=== PATIENT | female | born 1995 | race Caucasian/White ===

== ENCOUNTER 2017-03-28 15:16 | Emergency (ER) | payer MEDICAID ==
[~2017-03-28] VITALS: Ht 175.3 cm; Wt 131.5 kg
[~2017-03-28 15:16] MED LIST: AUGMENTIN1 TA2 PO; IBUPROFEN 600M600 MG PO; LORTAB 5/3251 TAB PO; NAPROSYN 500MG500 MG PO; PERCOCET 5/3251 EACH PO; [UNRECOGNIZED DRUG - OTHER] PO; [UNRECOGNIZED DRUG - OTHER] XX
--- OUTSIDE RECORDS SUMMARY | 2017-03-28 15:26 | External Medical Summary Rpt | CCD ---
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 PLASTIC FOR FOR OPERATION CHILD CHILD S TIBIA&FIB MENDEL ANES OPEN 94111 [facility] [place] 2 MEDICAL Y CHR OSTEOTOMY SERV /OSTEOPLA FOUNDATIO STY TIBIA&/FI BULA DCMPRN 87881 WALKER WALKER FASCT LEG 2 Jun ANT&/LAT& PST CMPRT OTHER 7737 [facility] DIVISION 2 [facility] [place] FOR FOR AND CHILD CHILD FIBULA APPLICATI 7817 [facility] 2 [facility] EXTERNAL FOR FOR FIXATOR CHILD CHILD DEVC TIBIA&FIB MENDEL COMPREHEN 07394 COMBINED COMBINED SIVE 2 PHYSICIAN PHYSICIAN METABOLIC S LA S LA PANEL BLOOD 23744 DYLLAN Lennon COUNT 2 COMPLETE AUTO&AUTO DIFRNTL WBC 25 12729 COMBINED COMBINED HYDROXY 2 PHYSICIAN PHYSICIAN INCLUDES [place] [address] COMBINED COMBINED THYROID 2 PHYSICIAN PHYSICIAN STIMULATI S LA S LA NG HORMONE TSH PHYSICAL 39037 [facility] THERAPY [address] [place] [address] EVALUATIO FOR FOR N CHILD CHILD RADIOLOGI [address] EXAMINATI FOR FOR ON KNEE CHILD CHILD 1/2 VIEWS RADIOLOGI 46445 [facility] SALES C 2 [facility] EXAMINATI INC INC ON KNEE 1/2 VIEWS ANESTHESI 27834 [facility] BENJAMIN A OPEN 2 MEDICAL Y CHR PROCEDURE SERV S UPPER FOUNDATIO 2/3 [place] [address] [facility] SOURAV INFUS/SERG 2 MEDICAL Y CHR US SERV DX/SBST FOUNDATIO EDRL/SUBA VALARIE LUM/SACRA L OSTEOTOMY 78742 WALK[facility] WALKER FEMUR 2 Jun SHAFT/SUP RACONDYLA R W/FIXATIO N INTERNAL [address] FEM FOR FOR WITHOUT CHILD CHILD FRACTURE REDUCTION WEDGE 7763 [facility] OSTEOTOMY 2 [facility] OF FEMUR FOR FOR CHILD CHILD BLOOD 61658 [facility] COUNT 2 [facility] COMPLETE FOR FOR AUTO&AUTO CHILD CHILD DIFRNTL WBC BONE 23762 [facility] LENGTH 2 [facility] STUDIES FOR FOR CHILD CHILD THROMBOPL 02101 [facility] ASTIN [address] [place] [address] TIME FOR FOR PARTIAL CHILD CHILD PLASMA/WH OLE BLOOD BASIC 12957 [facility] METABOLIC 2 [facility] PANEL FOR FOR CALCIUM CHILD CHILD TOTAL BLOOD 83744 [facility] TYPING [address] [place] [address] SEROLOGIC FOR FOR RH (D) CHILD CHILD PROTHROMB 95171 [facility] IN TIME 2 [facility] FOR FOR CHILD CHILD ANTIBODY 09925 [facility] SCREEN [address] [place] [address] HOSPITALS RBC EACH FOR FOR SERUM CHILD CHILD TECHNIQUE BLOOD [address] SEROLOGIC FOR FOR ABO CHILD CHILD THERAPEUT 98271 FAMILY DYLLAN J IC 1 CARE PROPHYLAC ASSOCIATE TIC/DX S INJECTION SUBQ/IM 4VHPV 86108 FAMILY DYLLAN J VACCINE 3 1 CARE DOSE ASSOCIATE SCHEDULE S FOR IM USE RADIOLOGI 17642 [facility] 1 [facility] EXAMINATI FOR FOR ON TIBIA CHILD CHILD & FIBULA 2 VIEWS BONE 16420 [facility] 1 [facility] STUDIES FOR FOR CHILD CHILD JOINT 84837 [place] GUERLINE SURVEY 1 MEDICAL AUGIE SINGLE SERV VIEW 2 OR FOUNDATIO MORE JOINTS RADIOLOGI 20030 [facility] SALES C 1 [facility] EXAMINATI INC INC ON KNEE 1/2 VIEWS BASIC 49854 [facility] SALES METABOLIC 1 [facility] PANEL INC INC CALCIUM TOTAL RADEX 41893 [facility] SALES SPINE 1 [facility] LUMBOSACR INC INC AL MINIMUM 4 VIEWS RADEX HIP 99771 [facility] 1 [facility] UNILATERA INC INC L COMPLETE MINIMUM 2 VIEWS SEDIMENTA 91688 [place] SALES TION RATE 1 [facility] RBC INC INC NON-AUTOM ATED BLOOD 35843 [facility] SALES COUNT 1 [facility] COMPLETE INC INC AUTO&AUTO DIFRNTL WBC URNLS DIP 78641 [facility] SALES 1 [facility] STICK/TAB INC INC LET REAGENT AUTO MICROSCOP Y URINE 90084 [facility] SALES 1 [facility] TEST INC INC VISUAL COLOR CMPRSN METHS RADIOLOGI 44294 [facility] SALES C 1 [facility] EXAMINATI INC INC ON PELVIS 1/2 VIEWS 4VHPV 82181 FAMILY DYLLAN Lennon VACCINE 3 1 CARE DOSE ASSOCIATE SCHEDULE S FOR IM USE THERAPEUT 10998 FAMILY MIJARES Saji IC 1 CARE PROPHYLAC ASSOCIATE TIC/DX S INJECTION SUBQ/IM Encounters Encounter Start End Date Code Location Performer Type Date OFFICE 18426 OUTPATIEN 7 7 [facility] T VISIT 5 E [facility] [place] - 7 7 [facility] OUTPATIEN E T [facility] [place] - 7 7 [facility] OUTPATIEN E T HOSPITALS OFFICE 13701 OUTPATIEN 7 7 [facility] T VISIT 5 E [facility] [place] - 7 7 [facility] OUTPATIEN E T [facility]OSPITALS OFFICE 50113 OUTPATIEN 7 7 [facility] T VISIT 5 E [facility] [place] - 7 7 [facility] OUTPATIEN INC T OFFICE 77543 [facility] OUTPATIEN 7 7 PHYSICIAN T NEW 30 S [facility] - 7 7 [facility]PATIEN INC [facility] - [facility] 7 [facility] OUTPATIEN INC T EMERGENCY 85087 [facility] 7 7 [facility] DEPARTMEN INC T VISIT LOW/MODER SEVERITY EMERGENCY 78237 STEVEN RADER 7 7 PHYSICIAN DEPARTMEN S, PLLC T VISIT HIGH/URGE NT SEVERITY OFFICE 26247 [facility] JOHN OUTPATIEN 7 7 PHYSICIAN T VISIT S GROUP 25 MINUTES OFFICE 90407 [facility] JOHN OUTPATIEN 7 7 PHYSICIAN T NEW 30 S GROUP MINUTES HOSPITAL [facility] - 7 7 [facility] OUTPATIEN INC T OFFICE 87081 FAMILY CROWDY OUTPATIEN 6 6 CARE CRI T VISIT ASSOCIATE 15 S MINUTES OFFICE 67880 [facility] CR[facility]DY OUTPATIEN 6 6 CARE CRI T VISIT ASSOCIATE 15 S MINUTES OFFICE 18511 FAM[facility] CROWDY OUTPATIEN 6 6 CARE CRI T VISIT ASSOCIATE 15 S MINUTES EMERGENCY 35009 [facility] 6 6 [facility] DEPARTMEN INC T VISIT LOW/MODER SEVERITY [facility]PITAL [facility] - 6 6 [facility] OUTPATIEN INC T [facility] - 5 5 [facility] OUTPSYCHI[facility] T EMERGENCY 19317 [facility] 5 5 [facility] T VISIT MODERATE SEVERITY PERIODIC 64834 FAMILY DYLLAN PREVENTIV 5 5 CARE LAUREN E MED EST ASSOCIATE PATIENT S 18-39 YRS OFFICE 60105 FAMILY DYLLAN OUTPATIEN 5 5 CARE LAUREN T VISIT ASSOCIATE 15 S MINUTES HOSPITAL [facility] - 4 4 N OUTPATIEN COMMUNITY T HOSPITA EMERGENCY 85811 [facility] 4 4 N [facility] T VISIT HOSPITA MODERATE SEVERITY Emergency ASAF Mattson MD (ER) 3 18:43 3 20:15 [facility] EMERGENCY 73063 JOHN MATTSON 3 3 [facility] DEPARTMEN T VISIT MODERATE SEVERITY OFFICE 63676 DYLLAN Lennon OUTPATIEN 3 3 G G T VISIT 15 MINUTES [facility] 3 3 [facility] T [facility] HOSPITALS OUTPATIEN FOR T CHILD OFFICE 67667 [facility] 3 3 HOSPITALS T VISIT 5 FOR MINUTES CHILD [facility] - 3 3 [facility] OUTPATIEN INC T OFFICE 17827 DYLLAN Lennon OUTPATIEN 3 3 G G T VISIT 15 MINUTES OFFICE 36782 DYLLAN Lennon OUTPATIEN 3 3 G G T VISIT 15 MINUTES OFFICE 61956 [facility] 3 3 HOSPITALS T VISIT FOR 10 CHILD MINUTES [facility] 3 [facility] OUTPATIEN FOR T CHILD [facility] 3 3 HOSPITALS OUTPATIEN FOR T CHILD OFFICE 32776 DYLLAN Lennon OUTPATIEN 3 3 G G T VISIT 15 MINUTES OFFICE 72638 [facility] 3 3 HOSPITALS T VISIT FOR 10 CHILD MINUTES OFFICE 05445 [facility] 3 3 Jun T VISIT 15 MINUTES [facility] 3 3 [facility] OUTPATIEN FOR T CHILD [facility] 2 2 HOSPITALS OUTPATIEN FOR T CHILD OFFICE 49573 [facility] 2 2 HOSPITALS T VISIT 5 FOR MINUTES CHILD OFFICE 36081 [facility] 2 2 Jun T VISIT 15 MINUTES OFFICE 77125 DYLLAN Lennon OUTPATIEN 2 2 G G T VISIT 15 MINUTES OFFICE 76957 [facility] 2 2 HOSPITALS T VISIT 5 FOR MINUTES CHILD [facility] OUTPATIEN FOR T [facility]ILD [facility] OUTPATIEN FOR T CHILD OFFICE 98662 [facility] OUTPSYCHI[facility]ICEN 2 2 HOSPITALS T VISIT 5 FOR MINUTES CHILD OFFICE 24899 [facility]EN 2 2 HOSPITALS T VISIT 5 FOR MINUTES CHILD [facility] OUTPATIEN FOR T [facility]ILD [facility] 2 [facility]ITALS OUTPATIEN FOR T CHILD OFFICE 04459 [facility] 2 2 HOSPITALS T VISIT 5 FOR MINUTES CHILD OFFICE 52597 [facility] 2 2 HOSPITALS T VISIT 5 FOR MINUTES CHILD [facility] OUTPATIEN FOR T [facility]ILD [facility] 2 [facility]ITALS OUTPATIEN FOR T CHILD OFFICE 96624 [facility] 2 2 HOSPITALS T VISIT 5 FOR MINUTES CHILD OFFICE 08236 [facility] 2 2 HOSPITALS T VISIT 5 FOR MINUTES CHILD [facility] 2 [facility] OUTPATIEN FOR T CHILD OFFICE 69267 [facility] 2 2 HOSPITALS T VISIT FOR 10 CHILD [facility] 2 2 [facility]PITALS OUTPATIEN FOR T CHILD [facility] 2 HOSPITALS OUTPATIEN FOR T CHILD OFFICE 86643 [facility]EN 2 2 HOSPITALS T VISIT 5 FOR MINUTES CHILD [facility] OUTPATIEN FOR T [facility]ILD [facility] 2 [facility] INPATIENT FOR CHILD [facility] 2 [facility]ITALS OUTPATIEN FOR T CHILD OFFICE 12473 DYLLAN Lennon OUTPATIEN 2 2 T VISIT 15 MINUTES OFFICE 18600 [facility] 2 2 [facility] MEGAN T VISIT 5 FOR MINUTES CHILD [facility] - 2 2 HOSPITALS OUTPATIEN FOR T CHILD [facility] - [facility] 2 [facility] OUTPATIEN INC T EMERGENCY 59072 [facility] 2 2 III AINSLEY III [facility] DEPARTMEN T VISIT MODERATE SEVERITY EMERGENCY 86649 [facility] 2 2 [facility] DEPARTMEN INC T VISIT LOW/MODER SEVERITY [facility] 2 2 [facility] OUTPATIEN FOR T CHILD OFFICE 62324 [facility] 2 2 [facility] T VISIT 5 FOR MINUTES CHILD OFFICE 81487 DYLLAN Lennon OUTPATIEN 2 2 G G T VISIT 15 MINUTES HOSPITAL [facility] 2 2 [facility] INPATIENT FOR [facility]ILD [facility] - 2 2 HOSPITALS OUTPATIEN FOR T CHILD OFFICE 04175 [facility] 1 1 HOSPITALS T VISIT FOR 10 CHILD MINUTES [facility] - 1 1 H[facility]PITALS OUTPATIEN FOR T CHILD [facility] - 1 1 HOSPITALS OUTPATIEN FOR T CHILD OFFICE 65278 [facility] OUTPSYCHIATRICEN 1 1 MEDICAL KARISSA T VISIT SERV 10 FOUNDATIO MINUTES OFFICE 08637 [facility] 1 1 HOSPITALS T VISIT FOR 15 CHILD MINUTES OFFICE 19861 [facility] 1 1 MEDICAL SHE ION SERV NEW/ESTAB FOUNDATIO PATIENT 40 MIN [facility] 1 Y OUTPATI [facility]ITAL [facility] [facility] 1 [facility] OUTPATIEN INC T OFFICE 93346 [facility] CONS[facility] 1 1 PHYSICIAN ZAFAR SILVA NEW/ESTAB PATIENT 80 MIN OFFICE 48530 FAMILY DYLLAN [place] 1 1 CARE T VISIT ASSOCIATE 15 S MINUTES EMERGENCY 84995 JUANY MATTSON 1 1 EMERGENCY [facility] DEPARTMEN SERVICES T VISIT HIGH/URGE NT SEVERITY EMERGENCY 28715 [facility] 1 1 [facility] DEPARTMEN INC T VISIT MODERATE SEVERITY [facility] - 1 1 [facility] OUTPAT[facility] T OFFICE 12803 FAMILY DYLLAN [place] 1 1 CARE T VISIT ASSOCIATE 15 S MINUTES
--- OUTSIDE RECORDS SUMMARY | 2017-03-28 15:26 | External Medical Summary Rpt | CCD ---
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 OUTPATIEN INC T OFFICE 43014 FAMILY CROWDY OUTPATIEN 6 6 CARE CRI T VISIT ASSOCIATE 15 S MINUTES OFFICE 03558 FAM[facility] CROWDY OUTPATIEN 6 6 CARE CRI T VISIT ASSOCIATE 15 S MINUTES OFFICE 48157 FAM[facility] CROWDY OUTPATIEN 6 6 CARE CRI T VISIT ASSOCIATE 15 S MINUTES EMERGENCY 16696 [facility] 6 6 [facility] DEPARTMEN INC T VISIT LOW/MODER SEVERITY [facility] - 6 6 [facility]PATIEN INC T [facility] 44169 [facility] 5 5 [facility] T VISIT MODERATE SEVERITY PERIODIC 81480 FAMILY DYLLAN PREVENTIV 5 5 CARE LAUREN E MED EST ASSOCIATE PATIENT S 18-39 YRS OFFICE 16531 FAMILY DYLLAN OUTPATIEN 5 5 CARE LAUREN T VISIT ASSOCIATE 15 S MINUTES HOSPITAL [facility] - 4 4 N OUTPATIEN COMMUNITY T HOSPITA EMERGENCY 84310 [facility] 4 4 [facility] H[facility]ITA MODERATE SEVERITY Emergency ASAF Mattson MD (ER) 3 18:43 3 20:15 [facility] EMERGENCY 66501 JOHN MATTSON 3 3 [facility] DEPARTMEN T VISIT MODERATE SEVERITY OFFICE 91470 DYLLAN Lennon OUTPATIEN 3 3 G G T VISIT 15 MINUTES [facility] - 3 3 [facility] T [facility] OUTPATIEN FOR T CHILD OFFICE 54549 [facility] 3 3 HOSPITALS T VISIT 5 FOR MINUTES CHILD [facility] - 3 3 [facility] OUTPATIEN INC T OFFICE 60395 DYLLAN Lennon OUTPATIEN 3 3 G G T VISIT 15 MINUTES OFFICE 42127 DYLLAN Lennon OUTPATIEN 3 3 G G T VISIT 15 MINUTES OFFICE 42097 [facility] 3 3 HOSPITALS T VISIT FOR 10 CHILD MINUTES [facility] 3 [facility] OUTPATIEN FOR T CHILD [facility] OUTPATIEN FOR T CHILD OFFICE 29065 DYLLAN Lennon OUTPATIEN 3 3 G G T VISIT 15 MINUTES OFFICE 84318 [facility] 3 3 HOSPITALS T VISIT FOR 10 CHILD MINUTES OFFICE 13154 [facility] 3 3 Jun T VISIT 15 MINUTES [facility] 3 [facility] OUTPATIEN FOR T CHILD [facility] 2 [facility]PITALS OUTPATIEN FOR T CHILD OFFICE 49771 [facility] 2 2 HOSPITALS T VISIT 5 FOR MINUTES CHILD OFFICE 43746 [facility] 2 2 Jun T VISIT 15 MINUTES OFFICE 06032 DYLLAN Lennon OUTPATIEN 2 2 G G T VISIT 15 MINUTES OFFICE 67854 [facility] 2 2 HOSPITALS T VISIT 5 FOR MINUTES CHILD [facility] FOR T [facility] OUTPATIEN FOR T CH[facility] OFFICE 79293 [facility] T [facility]ISIT 5 FOR MINUTES [facility]ILD OFFICE 62388 [facility] T VISIT 5 FOR MINUTES [facility] OUT[facility]EN [facility] OUTPATIEN FOR T [facility]ILD OFFICE 56085 [facility] T VISIT 5 FOR MINUTES [facility]ILD OFFICE 10454 [facility] T VISIT 5 FOR MINUTES [facility] OUT[facility]EN [facility] T [facility] 2 [facility] OUTPATIEN FOR T CHILD OFFICE 96926 [facility] T [facility]ISIT 5 FOR MINUTES CHILD OFFICE 59415 [facility] T [facility]ISIT 5 FOR MINUTES [facility] OUTPAT[facility] FOR T [facility] OFFICE 45043 [facility] T VISIT FOR 10 CHILD [facility] 2 [facility] OUTPATIEN FOR T CHILD [facility] OUTPATIEN FOR T CHILD OFFICE 89706 [facility] T VISIT 5 FOR MINUTES CHILD [facility] OUTPATIEN FOR T [facility] 2 [facility] INPATIENT FOR [facility]ILD [facility] 2 [facility] OUTPATIEN FOR T CHILD OFFICE 45417 DYLLAN Lennon OUTPATIEN 2 2 T VISIT 15 MINUTES OFFICE 27821 [facility] 2 2 [facility] MEGAN T VISIT 5 FOR MINUTES CHILD [facility] - 2 2 HOSPITALS OUTPATIEN FOR T CHILD [facility] - 2 2 [facility] OUTPATIEN INC T EMERGENCY 90138 [facility] 2 2 III AINSLEY III [facility] DEPARTMEN T VISIT MODERATE SEVERITY EMERGENCY 04269 [facility] 2 2 [facility] DEPARTMEN INC T VISIT LOW/MODER SEVERITY [facility] 2 [facility] OUTPATIEN FOR T CHILD OFFICE 89084 [facility] 2 2 [facility] T VISIT 5 FOR MINUTES CHILD OFFICE 18761 DYLLAN Lennon OUTPATIEN 2 2 G G T VISIT 15 MINUTES [facility] 2 2 [facility] INPATIENT FOR CHILD [facility] - 2 2 HOSPITALS OUTPATIEN FOR T CHILD OFFICE 13795 [facility] 1 1 HOSPITALS T VISIT FOR 10 CHILD MINUTES [facility] - 1 1 H[facility]PITALS OUTPATIEN FOR T CHILD [facility] - 1 1 HOSPITALS OUTPATIEN FOR T CHILD OFFICE 49499 [facility]ICAL [facility] T VISIT SERV 10 FOUNDATIO MINUTES OFFICE 55350 [facility] 1 1 HOSPITALS T VISIT FOR 15 CHILD MINUTES OFFICE 07872 [facility] 1 1 MEDICAL SHE ION SERV NEW/ESTAB FOUNDATIO PATIENT 40 MIN [facility] - 1 1 Y OUTPATI [facility]ITAL [facility] 1 [facility] OUTPATIEN INC T OFFICE 53003 [facility] CONSULTAT 1 1 PHYSICIAN ZAFAR SILVA NEW/ESTAB PATIENT 80 MIN OFFICE 85511 FAMILY DYLLAN [place] 1 1 CARE T VISIT ASSOCIATE 15 S MINUTES EMERGENCY 15287 JUANY MATTSON 1 1 EMERGENCY [facility] DEPARTMEN SERVICES T VISIT HIGH/URGE NT SEVERITY EMERGENCY 92100 [facility] 1 1 [facility] DEPARTMEN INC T VISIT MODERATE SEVERITY [facility] - 1 1 [facility] T OFFICE 12862 FAMILY DYLLAN [place] 1 1 CARE T VISIT ASSOCIATE 15 S MINUTES
[2017-03-28 15:30] LABS: URINE BILIRUBIN - DIPSTICK NEGATIVE (NEG); URINE BLOOD 3+ (NEG)
--- OUTSIDE RECORDS SUMMARY | 2017-03-28 15:30 | External Medical Summary Rpt | CCD ---
Author Author , BENJIE Organization BENJIE Address Unknown Phone [email or web address] Care Team Providers Care Ham Pumper Name Role Phone [facility] Unavailable Unavailable PHYSICIANS, [facility] DON OCHOA Unavailable Unavailable SANDERS, SANDERS Unavailable Unavailable [facility] Unavailable Unavailable SERV[facility], [facility] Unavailable Unavailable SERVICE, [facility] ORLANDO JAM, ORLANDO JAM Unavailable Unavailable LARRY SHE, Unavailable Unavailable LARRY SHE [facility], Unavailable Unavailable [facility] Unavailable Unavailable [facility], [facility] DYLLAN AKERS Unavailable Unavailable DYLLAN J, DYLLAN J Unavailable Unavailable DYLLAN J G, DYLLAN J Unavailable Unavailable G DYLLAN J G, DYLLAN J Unavailable Unavailable G DYLLAN LAUREN, DYLLAN Unavailable Unavailable LAUREN CROWDY, CROWDY Unavailable Unavailable CROWDY CRI, CROWDY Unavailable Unavailable CRI PRINCE GELY, Unavailable Unavailable PRINCE GELY PRINCE GELY, Unavailable Unavailable PRINCE GELY [facility] Unavailable Unavailable [facility] Un[facility], [facility] JOHN, JOHN Unavailable Unavailable JOHN [facility], JOHN Unavailable Unavailable [facility] JOHN [facility], JOHN Unavailable [facility]available [facility] Un[facility] Un[facility], [facility] Unavailable Unavailable INC, [facility] ARROYO KATE, ARROYO KATE Unavailable Unavailable ARROYO KATE, ARROYO KATE Unavailable Unavailable [facility], Unavailable Unavailable [facility] RADER, RADER Unavailable Unavailable INSURANCE UNDERWRITER DAVE, INSURANCE UNDERWRITER DAVE Unavailable Unavailable [facility] Unavailable [...] [facility] Unavailable Unavailable SERVICES[facility] Un[facility] Unavailable [facility] MERCHANT KET, Unavailable Unavailable MERCHANT KET MOGHADAMIAN, Unavailable Unavailable MOGHADAMIAN POWELL, Unavailable Unavailable POWELL POWELL CHR, Unavailable Unavailable POWELL CHR TALA II, TALA II Unavailable Unavailable PETTEY, PETTEY Unavailable Unavailable PETTEY JAM, PETTEY Unavailable Unavailable JAM [facility] Unavailable Unavailable [id number] # [id number], [facility] [id number] # [phone] [facility] Unavailable Unavailable FOR CHILD, [facility] Unavailable Unavailable EQUIPME, [facility] Unavailable Unavailable EQU[facility]ME, [facility] Unavailable Unavailable EMERGENCY PHYS, [facility] JF, JF Unavailable Unavailable [facility] Unavailable Unavailable [facility] MCNEIL RAY, MCNEIL Unavailable Unavailable [facility] Unavailable Unavailable HOSPITALS, [facility], Unavailable Unavailable [facility] WALKER KARISSA, WALKER Unavailable Unavailable KARISSA HANCOCK, WALKER Unavailable Unavailable KARISSA [facility] Constant Contact, Unavailable Unavailable [facility] Constant Contact, Unavailable Unavailable [facility] WEHRMAN III AINSLEY, Unavailable Unavailable WEHRMAN III AINSLEY WEHRMAN III AINSLEY, Unavailable Unavailable WEHRMAN III AINSLEY ADELINA MEGAN, ADELINA Unavailable Unavailable MEGAN Purpose Continuity of Care Document - 2010 through 2016 Problems Code Diagnosis DOS Provider Status [id number] JUVENILE 02-13-2017 [facility] UNS LEG [id number] UNS FX 02-13-2017 [facility] SHAFT LT SERV [facility] SUBSQT CLOS FX RTN HEAL [id number] DISPLACED 02-13-2017 [facility] UNS [facility] SUBSQT CLOS RTN [id number] DISPLACED 01-09-2017 [facility] PILON FX LT HEALTHCARE [facility] INIT HOSPITALS ENC CLOSED FX [id number] DISPLACED 01-09-2017 [facility] MEDICAL PILON FX LT SERV [facility] SUBSQT CLOS RTN HEAL [id number] NONDISPLACE 11-17-2016 [facility] UNS [place] INIT ENC CLOS FX E6601 MORBID 11-15-2016 [facility] MEDICAL SEVERE SERV OBESITY DUE FOUNDATION TO EXCESS CALORIES Z6843 BODY MASS 11-15-2016 [facility] MEDICAL INDEX BMI SERV 50-59.9 FOUNDATION ADULT Z8739 PERSONAL HX 11-15-2016 [facility] MEDICAL OTH DZ SERV MUSCULOSKEL FOUNDATION SYS&CONNECT V TISS G54424 OTHER 11-15-2016 [facility] MEDICAL SPECIFIED SERV POSTPROCEDU [facility] STATES [id number] UNS 11-14-2016 [place] [facility] FRACTURE SERV LOWER LT FOUNDATION TIBIA INITIAL ENC CLOS FX [id number] NONDISPLACE 11-09-2016 [facility] Garcia GOPI FX [facility]OS[facility] LT [facility] INC INIT ENC CLOS FX [id number] DISPL 11-07-[facility] IMAGING ASS [place] INIT ENC CLOS FX [id number] OTH FX 11-07-2016 [facility] LOWER LT IMAGING ASS FIB SUBSQT CLOS RTN HEAL K96607 PAIN IN 11-02-2016 [facility]LE [facility] M7989 OTHER 11-02-2016 [facility] SPECIFIED [facility] SOFT TISSUE IMAGING ASS DISORDERS R609 EDEMA 11-02-2016 [facility] UNSPECIFIED [facility] SERVICE [id number] OPEN BITE 11-02-2016 [facility] LEFT ANKLE [facility] INITIAL INC ENCOUNTER Z23 ENCOUNTER 11-02-2016 [facility] FOR [facility] IMMUNIZATIO INC N E559 VITAMIN D 08-04-2016 [facility]ANS UNSPECIFIED GROUP E663 OVERWEIGHT 08-04-2016 [facility] M9251 JUVENILE 07-19-2016 [facility]DR [facility]ICIANS [facility] & FIBULA RT LEG M9252 JUVENILE 07-19-2016 [facility] O[facility]DR [facility]YSICIANS OS[facility] & FIBULA LEFT LEG M929 JUVENILE 07-19-2016 [facility] OSIS IMAGING ASS UNSPECIFIED N938 OTHER SPEC 07-19-2016 [facility] ABNORMAL PHYSICIANS UTERINE & GROUP VAGINAL BLEEDING Z1159 ENCOUNTER 05-19-2016 LAB TON[facility] FOR [facility]LLY SCREENING HOLDINGS FOR OTHER VIRAL DISEASES R768 OTH SPEC 05-18-2016 [facility] ABNORMAL ASSOCIATES IMMUNOLOGIC AL FIND IN SERUM L41686 REGULAR 03-20-2016 ARROYO KATE ASTIGMATISM BILATERAL A749 CHLAMYDIAL 01-19-2016 MEDICAL INFECTION DIAGNOSTIC UNSPECIFIED LAB [facility] N3001 ACUTE 01-19-2016 [facility] CYSTITIS ASSOCIATES WITH HEMATURIA B379 CANDIDIASIS 12-17-2015 [facility] UNSPECIFIED R300 DYSURIA 12-17-2015 [facility] R875 ABN 12-17-2015 LABORATORY MICROBIOLOG TONY OF ICAL FIND CHELLY H IN SPEC FE GENIT ORGN H27959 PERSONAL 12-17-2015 [facility] HISTORY OF ASSOCIATES OTHER SPECIFIED CONDITIONS R040 EPISTAXIS 08-31-2015 [facility] Z5329 PROC & [place] 08-30-2015 [facility] NOT CARRIED [facility] OUT INC PATIENTS OTH REASON E669 OBESITY 06-08-2015 ST K[facility] UNSPECIFIED EAST [id number] CONTUSION 06-08-2015 ST K[facility] OF LEFT EAST KNEE INITIAL ENCOUNTER N4053KU CONTUSION 06-08-2015 [facility] PRIMARY OF LEFT CARE LOWER LEG PHYSICIANS INITIAL ENCOUNTER W0144PJ UNS INJURY 06-08-2015 [facility] [place] [facility]OWER [facility] LEG INITIAL ENCOUNTER Y2620EF OTHER FALL 06-08-2015 [facility] PRIMARY ON SAME CARE LEVEL PHYSICIANS INITIAL ENCOUNTER 54367 UNSPECIFIED 12-23-2014 [facility] VAGINITIS ASSOCIATES AND VULVOVAGINI TIS V259 UNSPECIFIED 12-23-2014 [facility] ASS[facility]IATES CONTRACEPTI VE MANAGEMENT V762 SCREENING 12-23-2014 MED[facility] FOR DIAGNOSTIC MALIGNANT [facility] NEOPLASM OF THE CERVIX 5990 URINARY 12-16-2014 [facility] TRACT ASSOCIATES INFECTION SITE NOT SPECIFIED 0340 STREPTOCOCC 04-15-2014 [facility] SORE N EMERGENCY THROAT PHYS 7804 DIZZINESS 04-05-2014 [facility] [place] AND RADIOLOGY GIDDINESS 04341 UNSPECIFIED 12-02-2012 [facility] SITE OF ANKLE SPRAIN AND STRAIN 32056 PAIN IN 10-22-2012 PRINCE JOINT, EGLY ANKLE AND FOOT 7295 PAIN IN 10-22-2012 [facility] TISSUES OF INC LIMB 17428 DISORDERS 10-22-2012 PRINCE OF SOFT GELY TISSUE UNSPECIFIED 50751 UNSPECIFIED 10-22-2012 PRINCE GELY OSTEOPOROSI S 7324 JUVENILE 10-15-2012 [facility] OSTEOCHONDR [facility] OSIS LOWER FOR CHILD EXTREM EXCLD FOOT V5489 OTHER 10-15-2012 [facility] ORTHOPEDIC [facility] AFTERCARE FOR CHILD 02767 OSTEOGENESI 09-20-2012 [facility] IMPERFECTA MEDICAL EQUIPME 7823 EDEMA 09-19-2012 [facility] V571 OTHER 08-29-2012 [facility] PHYSICAL [facility] THERAPY FOR CHILD 86039 GENU VALGUM 07-19-2012 [facility] KARISSA 04921 UNEQUAL LEG 07-19-2012 [facility] KARISSA LENGTH 2689 UNSPECIFIED 07-08-2012 DYLLAN Garcia VITAMIN D DEFICIENCY 32816 UNSPECIFIED 06-27-2012 [facility] KARISSA CONGENITAL ANOMALY OF LOWER LIMB 59814 OTHER 05-30-2012 [facility] ACQUIRED [facility] DEFORMITY FOR CHILD OF OTHER PARTS OF LIMB 7820 DISTURBANCE 05-30-2012 [facility] SKIN [facility] SENSATION FOR CHILD V5409 OTH 05-30-2012 [facility] AFTERCARE HOSPITALS INVOLVING FOR CHILD INTERNAL FIXATION DEVICE V5878 AFTERCARE 05-30-2012 [facility] SURGERY FOR CHILD MUSCULOSKEL SYSTEM NEC 7812 ABNORMALITY 04-18-2012 [facility] GAIT HOSPITALS FOR CHILD 82160 CONGEN 04-02-2012 [facility] KARISSA DISLOCATION 1 HIP W/SUBLUXATI ON OT HIP V7263 PRE-PROCEDU 02-16-2012 [facility] LABORATORY FOR CHILD EXAMINATION V6709 FOLLOW-UP 10-10-2011 [facility] HOSPITALS FOLLOWING FOR CHILD OTHER SURGERY 28731 PAIN IN 09-11-2011 WEHRMAN III JOINT, AINSLEY LOWER LEG 41059 OBESITY, 08-21-2011 [facility] UNSPECIFIED [facility] FOR CHILD 11341 VOMITING 08-21-2011 [facility] HOSPITALS FOR CHILD V5849 OTHER 08-21-2011 [place] MEDICAL SPECIFIED SERV AFTERCARE FOUNDATIO FOLLOWING SURGERY V7283 OTHER 08-20-2011 [facility] PRE-OPERATI FOR CHILD VE EXAMINATION V0489 NEED PROPH 01-31-2011 [facility] VACCINATION ASSOCI[place] &[place] [address] ABNORM 12-01-2010 [facility] RATE/RHYTHM FOR CHILD BEFORE ONSET LABOR 52891 OTHER 11-15-2010 [facility] STATION OF BONE AND CARTILAGE OTHER V1551 PERSONAL 11-15-2010 [facility] TRAUMATIC FRACTURE 7366 OTHER 10-05-2010 [facility] DEFORMITIES IMAGING ASS OF KNEE 16494 CONGEN 10-05-2010 [facility] LONGT[facility]NL PHYSICIANS DEFIC GROUP FEMORAL COMPLETE/PA RTIAL 7202 SACROILIITI 10-03-2010 [facility] S NOT ASSOCIATES ELSEWHERE CLASSIFIED 15835 PAIN IN 10-02-2010 [facility] PELVIC SERVICES REGION AND THIGH 7242 LUMBAGO 10-02-2010 [facility] 7245 UNSPECIFIED 10-02-2010 [place] [facility]HE [facility] SERVICES V058 NEED PROPH 2010 [facility] VACC[facility] OT SPEC DISEASE Medications Na ND Rx Da Fi Fi [...] 8- 4- 00 22 UC ve ON 20 20 03 [place] E- 25 17 [...] 8- 4- 00 22 UC ve ON 06 30 20 03 [place] E 80 17 17 [...] 1 34 PH CE AR TA MA [place] CY NO PH #3 EN 93 8 [...] 1 60 30 RI 87 CO Ac [place] 09 -1 -2 .0 TE 98 OP [...] CIAT ES SCHE DULE FOR IM USE Procedures Procedure DOS Code Location Performer Comment RADIOLOGI 48378 [place] JF C 7 MEDICAL EXAMINATI SERV ON TIBIA FOUNDATIO & FIBULA N 2 VIEWS RADEX 12858 [place] JF ANKLE 7 MEDICAL COMPLETE SERV MINIMUM 3 FOUNDATIO VIEWS N RADEX 49014 [place] MONTGOMER ANKLE 7 MEDICAL Y COMPLETE SERV MINIMUM 3 FOUNDATIO VIEWS N RADIOLOGI 82690 [place] MONTGOMER C 7 MEDICAL Y EXAMINATI SERV ON TIBIA FOUNDATIO & FIBULA N 2 VIEWS COMMODE E0168 [facility] WECARE CHAIR 7 MEDICAL MEDICAL XTRA Constant Contact [facility] WIDE&/HEV Y DUTY STATION/M OBIL ANES OPEN 57757 [place] TALA II PROC 7 MEDICAL BONES SERV LOWER FOUNDATIO LEG/ANKLE N /FOOT NOS RADEX 86722 [place] DON ANKLE 7 MEDICAL COMPLETE SERV MINIMUM 3 FOUNDATIO VIEWS N RADIOLOGI 29925 [place] DON C 7 MEDICAL EXAMINATI SERV ON TIBIA FOUNDATIO & FIBULA N 2 VIEWS OPEN 40508 [place] MOGHADAMI TREATMENT 7 MEDICAL AN FRACTURE SERV DISTAL FOUNDATIO TIBIA N ONLY RADIOLOGI 22116 [place] DON C 7 MEDICAL EXAMINATI SERV ON TIBIA FOUNDATIO & FIBULA N 2 VIEWS RADEX 88707 MANIOR JF ANKLE 7 MEDICAL COMPLETE SERV MINIMUM 3 FOUNDATIO VIEWS N FINAL G9638 MANPREET SANDERS REPORTS 7 MEDICAL W/O DOC IMAGING 1/MORE ASS DOSE REDUCTION TECH CT LOWER 00713 [facility] SALES EXTREMITY 7 MEM HOS[facility] W/O INC INC CONTRAST MATERIAL RADEX 06983 MANPREET SANDERS ANKLE 7 MEDICAL COMPLETE IMAGING MINIMUM 3 ASS VIEWS RADEX 33597 MANPREET SANDERS ANKLE 7 MEDICAL COMPLETE IMAGING MINIMUM 3 ASS VIEWS AMBULANCE A0429 [employer] [facility] SERVICE 7 AMBULANCE AMBULANCE BLS SERVICE SERVICE EMERGENCY TRANSPORT GROUND A0425 [facility] MI[facility] 7 AMBULANCE AMBULANCE PER SERVICE SERVICE STATUTE MILE COMPREHEN 19251 [facility] SALES SIVE 7 [facility] [place] [address] [facility] SLAES FREE 7 [facility] [place] [address] [facility] SALES THYROID 7 [facility] STIMULATI INC INC NG HORMONE TSH SEDIMENTA 30609 [facility] SALES TION RATE 7 [facility] H[facility] RBC INC INC NON-AUTOM ATED COLLECTIO 42938 [facility] SALES N VENOUS 7 [facility] BLOOD INC INC VENIPUNCT URE RADEX 56079 [facility] SALES SPINE 7 [facility] LUMBOSACR INC INC AL MINIMUM 4 VIEWS RADEX 42451 MANPREET SANDERS HIPS 7 MEDICAL BILATERAL IMAGING WITH ASS PELVIS 3-4 VIEWS URNLS DIP 98748 [facility] SALES 7 [facility]OS[facility] STICK/TAB INC INC LET REAGENT AUTO MICROSCOP Y HEMOGLOBI 03171 [facility] SALES N 7 MEM HOSP [facility]OS[facility] GLYCOSYLA INC INC SINTIA A1C BLOOD 16689 [facility] SALES COUNT 7 [facility]OS[facility] COMPLETE INC INC AUTO&AUTO DIFRNTL WBC RHEUMATOI 02008 [facility] SALES D FACTOR 7 MEM HOS[facility]OS[facility] QUANTITAT INC INC RENETTA RADEX HIP 29454 [facility] SALES 7 [facility] UNILATERA INC INC L WITH PELVIS 2-3 VIEWS RADIOLOGI 11637 [facility] SALES C 7 [facility]OS[facility] EXAMINATI INC INC ON TIBIA & FIBULA 2 VIEWS CULTURE 44449 [facility] SALES BACTERIAL 7 [facility] INC INC QUANTTATI VE COLONY COUNT URINE URINE 37789 [facility] 7 PHYSICIAN TEST S GROUP [place] [address] [place] SALES BLOOD/URI 7 [facility] C ACID INC INC ANTINUCLE 32974 [facility] SALES AR 7 [facility]OS[facility]OS[facility] ANTIBODIE INC INC S BARRY IADNA 82775 LAB TONY LAB TONY HEPATITIS 6 CHELLY CHELLY B VIRUS HOLDINGS HOLDINGS QUANTIFIC ATION COLLECTIO 68439 FAMILY MIJARES N VENOUS 6 CARE BLOOD ASSOCIATE VENIPUNCT S URE COLLECTIO 25725 FAMILY HAWK N VENOUS 6 CARE BLOOD ASSOCIATE VENIPUNCT S URE ACUTE 53769 LAB [facility] LAB TONY HEPATITIS 6 CHELLY CHELLY PANEL HOLDINGS HOLDINGS OPHTH 57321 ARROYO KATE BOSTON DISPENSARY MEDICAL 6 XM&EVAL COMPRE NEW PT 1/> VST CULTURE 79963 COMBINED COMBINED BACTERIAL 6 PHYSICIAN PHYSICIAN S LA S LA QUANTTATI VE COLONY COUNT URINE IADNA 99715 MEDICAL MEDICAL CHLAMYDIA 6 DIAGNOSTI DIAGNOSTI C LAB LLC C LAB LLC TRACHOMAT IS AMPLIFIED PROBE TQ IADNA 15848 LABORATOR LABORATOR HUMAN 6 Y TONY OF Y TONY OF [place] CHELLY CHELLY VIRUS H H HIGH-RISK TYPES IADNA 40830 LABORATOR LABORATOR CHLAMYDIA 6 Y TONY OF Y TONY OF CHELLY CHELLY TRACHOMAT H H IS AMPLIFIED PROBE TQ CULTURE 80064 COMBINED COMBINED BCT 6 PHYSICIAN PHYSICIAN ISOL&PRSM S LA S LA PTV ID ISOLATE EA URINE CULTURE 23645 COMBINED COMBINED BACTERIAL 6 PHYSICIAN PHYSICIAN S LA S LA QUANTTATI VE COLONY COUNT URINE IADNA 20950 LABORATOR LABORATOR TRICHOMON 6 Y TONY OF Y TONY OF CHELLY CHELLY VAGINALIS H H AMPLIFIED PROBE TECH CYTP C/V 96175 LABORATOR LABORATOR AUTO THIN 6 Y TONY OF Y TONY OF LYR CHELLY CHELLY PREPJ SCR H H MNL RESCR PHYS IADNA 04423 LABORATOR LABORATOR HERPES 6 Y TONY OF Y TONY OF SOMPLX CHELLY CHELLY VIRUS H H AMPLIFIED PROBE TQ IADNA 28327 LABORATOR LABORATOR NEISSERIA 6 Y TONY OF Y TONY OF CHELLY CHELLY GONORRHOE H H AE AMPLIFIED PROBE TQ SUSCEPTIB 80564 COMBINED COMBINED ILITY 6 PHYSICIAN PHYSICIAN STUDY S LA S LA ANTIMICRO BIAL DISK METHOD RADIOLOGI 07037 [facility] [place] ORLANDO JAM C EXAM 5 RADIOLOGY KNEE COMPLETE 4/MORE VIEWS IADNA NOS 78990 MEDICAL MEDICAL 5 DIAGNOSTI DIAGNOSTI AMPLIFIED C LAB LLC C LAB LLC PROBE TQ EACH ORGANISM IADNA 41870 MEDICAL MEDICAL NEISSERIA 5 DIAGNOSTI DIAGNOSTI C [facility] C LAB LLC GONORRHOE AE AMPLIFIED PROBE TQ IADNA 82764 MEDICAL MEDICAL GARDNEREL 5 DIAGNOSTI DIAGNOSTI LA C LAB LLC C LAB LLC VAGINALIS AMPLIFIED PROBE TQ IADNA 77054 MEDICAL MEDICAL TRICHOMON 5 DIAGNOSTI DIAGNOSTI C [facility] C [facility] VAGINALIS AMPLIFIED PROBE TECH IADNA 40882 MEDICAL MEDICAL CHLAMYDIA 5 DIAGNOSTI DIAGNOSTI C [facility] C LAB LLC TRACHOMAT IS AMPLIFIED PROBE TQ IADNA 65904 MEDICAL MEDICAL HUMAN 5 DIAGNOSTI DIAGNOSTI [place] C LAB LLC C LAB LLC VIRUS HIGH-RISK TYPES CULTURE 93868 COMBINED COMBINED BCT 5 PHYSICIAN PHYSICIAN ISOL&PRSM S LA S LA PTV ID ISOLATE EA URINE CULTURE 34371 COMBINED COMBINED BACTERIAL 5 PHYSICIAN PHYSICIAN S LA S LA QUANTTATI VE COLONY COUNT URINE SUSCEPTIB 88871 COMBINED COMBINED ILITY 5 PHYSICIAN PHYSICIAN STUDY S LA S LA ANTIMICRO BIAL DISK METHOD THERAPEUT 11034 [facility] IC 4 N N PROPHYLAC COMMUNITY COMMUNITY TIC/DX HOSPITA HOSPITA INJECTION SUBQ/[place] [address] [facility] [place] TARUN HEAD/BRAI 4 RADIOLOGY RAY N W/O CONTRAST MATERIAL CRTCHS E0114 [facility] UNDARM 3 OTH THAN WOOD PAIR PAD TIP&HNDGR IP RADEX 43473 PRINCE PRINCE FOOT 3 GELY GELY COMPLETE MINIMUM 3 VIEWS RADEX 16892 PRINCE PRINCE ANKLE 3 GELY GELY COMPLETE MINIMUM 3 VIEWS EXTRA K0007 NIK MILTONRELL HEAVY-DUT 3 HOME HOME Y MEDICAL MEDICAL WHEELCHAI EQUIPME EQUIPME R ELEVATING K0195 NIK NIK LEGREST 3 HOME HOME PAIR MEDICAL MEDICAL EQUIPME EQUIPME DUP-SCAN 72544 [facility] SALES XTR VEINS 3 MEM HOS[facility]OS[facility] INC INC UNILATERA L/LIMITED STUDY PHYSICAL [address] EVALUATIO FOR FOR N CHILD CHILD RADIOLOGI [address] EXAMINATI FOR FOR ON TIBIA CHILD CHILD & FIBULA 2 VIEWS ELEVATING K0195 NIK NIK LEGREST 3 HOME HOME PAIR MEDICAL MEDICAL EQUIPME EQUIPME EXTRA K0007 NIK NIK HEAVY-DUT 3 HOME HOME Y MEDICAL MEDICAL WHEELCHAI EQUIPME EQUIPME R EXTRA K0007 NIK NIK HEAVY-DUT 3 HOME HOME Y MEDICAL MEDICAL WHEELCHAI EQUIPME EQUIPME R ELEVATING K0195 NIK NIK LEGREST 3 HOME HOME PAIR MEDICAL MEDICAL EQUIPME EQUIPME RADIOLOGI [address] EXAMINATI FOR FOR ON TIBIA CHILD CHILD & FIBULA 2 VIEWS URINE 71435 [facility] [address] [place] [address] TEST FOR FOR VISUAL CHILD CHILD COLOR CMPRSN METHS APPLICATI 74226 [facility] ON LONG [address] [place] [address] LEG CAST FOR FOR WALKER/AM CHILD CHILD BULATORY TYPE PHYSICAL [address] EVALUATIO FOR FOR N CHILD CHILD REMOVAL [address] FIXATION FOR FOR SYSTEM CHILD CHILD UNDER ANES ANES CAST 42633 INSURANCE UNDERWRITER DAVE INSURANCE UNDERWRITER DAVE 3 APPLICATI ON REMOVAL/R EPAIR KNEE JOINT RADIOLOGI 33070 [facility]PITALS EXAMINATI FOR FOR ON TIBIA CHILD CHILD & FIBULA 2 VIEWS RADIOLOGI 43754 [facility] 2 [facility]IT[facility] EXAMINATI FOR FOR ON TIBIA CHILD CHILD & FIBULA 2 VIEWS 25 93792 COMBINED COMBINED [facility] 2 PHYSICIAN PHYSICIAN INCLUDES S LA S LA FRACTIONS IF PERFORMED BLOOD 70539 DYLLAN Lennon COUNT 2 G G COMPLETE AUTO&AUTO DIFRNTL WBC RADIOLOGI 20496 [facility] 2 [facility] EXAMINATI FOR FOR ON TIBIA CHILD CHILD & FIBULA 2 VIEWS BONE 43987 [facility] STUDIES FOR FOR CHILD CHILD THERAPEUT 79422 [facility] IC PX 1/> 2 [facility] AREAS FOR FOR EACH 15 CHILD CHILD MIN EXERCISES THERAPEUT 05096 [facility] PX 1/> 2 [facility] AREAS FOR FOR EACH 15 CHILD CHILD MIN EXERCISES RADIOLOGI 05868 [facility] 2 [facility] EXAMINATI FOR FOR ON TIBIA CHILD CHILD & FIBULA 2 VIEWS RADIOLOGI 27562 [facility] 2 [facility] EXAMINATI FOR FOR ON TIBIA CHILD CHILD & FIBULA 2 VIEWS THERAPEUT 60247 [facility] IC PX 1/> 2 [facility] AREAS FOR FOR EACH 15 CHILD CHILD MIN EXERCISES BONE 35024 [facility] STUDIES FOR FOR CHILD CHILD RADIOLOGI 01570 [facility] 2 [facility] EXAMINATI FOR FOR ON TIBIA CHILD CHILD & FIBULA 2 VIEWS RADIOLOGI 51558 [facility] 2 [facility] EXAMINATI FOR FOR ON TIBIA CHILD CHILD & FIBULA 2 VIEWS RADIOLOGI 81266 [facility] 2 [facility] EXAMINATI FOR FOR ON TIBIA CHILD CHILD & FIBULA 2 VIEWS BONE 39456 [facility] STUDIES FOR FOR CHILD CHILD RADIOLOGI 55354 [facility] 2 [facility] EXAMINATI FOR FOR ON TIBIA CHILD CHILD & FIBULA 2 VIEWS THERAPEUT 56121 [facility] IC PX 1/> 2 HOSPITALS HOSPITALS AREAS FOR FOR EACH 15 CHILD CHILD MIN EXERCISES THERAPEUT 57543 [facility] DIRECT PT FOR FOR CONTACT CHILD CHILD EACH 15 MIN THERAPEUT 87095 [facility] DIRECT PT FOR FOR CONTACT CHILD CHILD EACH 15 MIN THERAPEUT 51734 [facility] IC PX 1/> 2 [facility] AREAS FOR FOR EACH 15 CHILD CHILD MIN EXERCISES THERAPEUT 09249 [facility] IC PX 1/> 2 [facility] AREAS FOR FOR EACH 15 CHILD CHILD MIN EXERCISES THERAPEUT 61701 [facility] DIRECT PT FOR FOR CONTACT CHILD CHILD EACH 15 MIN THERAPEUT 29667 [facility] DIRECT PT FOR FOR CONTACT CHILD CHILD EACH 15 MIN THERAPEUT 48460 [facility] IC PX 1/> 2 [facility] AREAS FOR FOR EACH 15 CHILD CHILD MIN EXERCISES THERAPEUT 48297 [facility] DIRECT PT FOR FOR CONTACT CHILD CHILD EACH 15 MIN THERAPEUT 15744 [facility] IC PX 1/> [facility] FOR FOR EACH 15 CHILD CHILD MIN EXERCISES THERAPEUT 53016 [facility] IC PX 1/> 2 [facility] FOR FOR EACH 15 CHILD CHILD MIN EXERCISES THERAPEUT 56524 [facility] ACTVITY 2 [facility] DIRECT PT FOR FOR CONTACT CHILD CHILD EACH 15 MIN THERAPEUT 62436 [facility] ACTVITY 2 [facility] DIRECT PT FOR FOR CONTACT CHILD CHILD EACH 15 MIN TH[facility]APEUT 55232 [facility] FOR FOR EACH 15 CHILD CHILD MIN EXERCISES THERAPEUT 87346 [facility] IC PX 1/> [facility] FOR FOR EACH 15 CHILD CHILD MIN EXERCISES THERAPEUT 82301 [facility] DIRECT PT FOR FOR CONTACT CHILD CHILD EACH 15 MIN PHYSICAL [id number] HOSPITALS EVALUATIO FOR FOR N CHILD CHILD APPLICATI 53793 [facility] ON 2 Jun MULTIPLAN E EXTERNAL FIXATION SYSTEM OSTEOPLAS 33492 [facility] TY TIBIA 2 Jun & FIBULA LENGTHENI NG/SHORTE ZIYAD DCMPRN 21778 [facility] FASCT LEG 2 Jun ANT&/LAT& PST CMPRT ANES OPEN 53317 [place] [facility] 2 MEDICAL Y CHR OSTEOTOMY SERV /OSTEOPLA FOUNDATIO STY TIBIA&/FI BULA APPLICATI 7817 [facility] 2 [facility] EXTERNAL FOR FOR FIXATOR CHILD CHILD DEVC TIBIA&FIB MENDEL FASCIOTOM 8314 [facility] 2 [facility] FOR FOR CHILD CHILD APPLICATI 8472 [facility] 2 [facility] EXTERNAL FOR FOR FIXATOR CHILD CHILD DEVICE RING SYSTEM OTHER 7847 [facility] REPAIR OR 2 [facility] PLASTIC FOR FOR OPERATION CHILD CHILD S TIBIA&FIB MENDEL OTHER 7737 [facility] 2 [facility] [place] FOR FOR AND CHILD CHILD FIBULA BLOOD 43988 DYLLAN Lennon COUNT 2 COMPLETE AUTO&AUTO DIFRNTL WBC COMPREHEN 10516 COMBINED COMBINED SIVE 2 PHYSICIAN PHYSICIAN METABOLIC S LA S LA PANEL 25 79134 COMBINED COMBINED HYDROXY 2 PHYSICIAN PHYSICIAN INCLUDES S [place] [address] COMBINED COMBINED THYROID 2 PHYSICIAN PHYSICIAN STIMULATI S LA S LA NG HORMONE T[facility] PHYSICAL [address] EVALUATIO FOR FOR N CHILD CHILD RADIOLOGI [address] EXAMINATI FOR FOR ON KNEE CHILD CHILD 1/2 VIEWS RADIOLOGI 50944 [facility] SALES C 2 [facility] EXAMINATI INC INC ON KNEE 1/2 VIEWS WEDGE 7725 [facility] OSTEOTOMY 2 [facility] OF FEMUR FOR FOR CHILD CHILD INTERNAL 7855 [facility] FIXATION [address] [place] [address] FEM FOR FOR WITHOUT CHILD CHILD FRACTURE REDUCTION OSTEOTOMY 74248 WALKER WALKER FEMUR 2 Jun SHAFT/SUP RACONDYLA R W/FIXATIO N ANESTHESI 72916 MAINOR BENJAMIN A OPEN 2 MEDICAL Y CHR PROCEDURE SERV S UPPER FOUNDATIO 2/3 [place] NJX [address] MAINOR BENJAMIN INFUS/SERG 2 MEDICAL Y CHR US SERV DX/SBST FOUNDATIO EDRL/SUBA VALARIE LUM/SACRA L THROMBOPL 35484 [facility] ASTIN [address] [place] [address] TIME FOR FOR PARTIAL CHILD CHILD PLASMA/WH OLE BLOOD BLOOD 69439 [facility] TYPING [address] [place] [address] SEROLOGIC FOR FOR RH (D) CHILD CHILD BASIC [address] PANEL FOR FOR CALCIUM CHILD CHILD TOTAL BLOOD 96123 [facility] COUNT [address] [place] [address] COMPLETE FOR FOR AUTO&AUTO CHILD CHILD DIFRNTL WBC BONE [address] STUDIES FOR FOR CHILD CHILD PROTHROMB 65600 [facility] IN TIME [address] [place] [address] HOSPITALS FOR FOR CHILD CHILD ANTIBODY 11330 [facility] SCREEN [address] [place] [address] RBC EACH FOR FOR SERUM CHILD CHILD TECHNIQUE BLOOD [address] SEROLOGIC FOR FOR ABO CHILD CHILD THERAPEUT 82687 FAMILY DYLLAN J IC 1 CARE PROPHYLAC ASSOCIATE TIC/DX S INJECTION SUBQ/IM 4VHPV 95727 FAMILY DYLLAN Lennon VACCINE 3 1 CARE DOSE ASSOCIATE SCHEDULE S FOR IM USE RADIOLOGI [address] EXAMINATI FOR FOR ON TIBIA CHILD CHILD & FIBULA 2 VIEWS BONE 12254 [facility] 1 [facility] STUDIES FOR FOR CHILD CHILD JOINT 60045 [facility] 1 Y Y [facility] VIEW 2 OR MORE JOINTS RADIOLOGI 34469 [facility] 1 MEDICAL GELY EXAMINATI IMAGING ON KNEE ASS 1/2 VIEWS BASIC 28735 [facility] SALES METABOLIC 1 [facility] PANEL INC INC CALCIUM TOTAL URINE 67884 [facility] SALES 1 [facility] TEST INC INC VISUAL COLOR CMPRSN METHS RADIOLOGI 28387 MANPREET MORRISON C 1 MEDICAL GELY EXAMINATI IMAGING ON PELVIS ASS 1/2 VIEWS RADEX 12809 MANPREET MORRISON SPINE 1 MEDICAL GELY LUMBOSACR IMAGING AL ASS MINIMUM 4 VIEWS BLOOD 88994 [place] SALES COUNT 1 [facility] COMPLETE INC INC AUTO&AUTO DIFRNTL WBC URNLS DIP 57168 [facility] SALES 1 [facility] HOS[facility] STICK/TAB INC INC LET REAGENT AUTO MICROSCOP Y RADEX HIP 97787 MANPREET MORRISON 1 MEDICAL GELY UNILATERA IMAGING L ASS COMPLETE MINIMUM 2 VIEWS SEDIMENTA 32986 [place] SALES TION RATE 1 [facility] HOSP RBC INC INC NON-AUTOM ATED THERAPEUT 92409 FAMILY DYLLAN Lennon IC 1 CARE PROPHYLAC ASSOCIATE TIC/DX S INJECTION SUBQ/IM 4VHPV 35892 FAMILY DYLLAN Lennon VACCINE 3 1 CARE DOSE ASSOCIATE SCHEDULE S FOR IM USE Encounters Encounter Start End Date Code Location Performer Type Date [facility] - 7 7 [facility] OUT[facility] T H[facility]PITALS OFFICE 45162 [facility]PAT[facility] 7 7 [facility] T VISIT 5 E MINUTES [facility]OSPITALS OFFICE 87108 [facility] 7 7 [facility] 5 E MINUTES [facility] OFFICE 09201 OUTPATIEN 7 7 [facility] T VISIT 5 E MINUTES [facility] OUTPATIEN INC T OFFICE 16891 [facility] OUTPAT[facility] 7 7 PHYSICIAN T NEW 30 S GROUP MINUTES [facility] - 7 7 [facility] OUTPATIEN INC T EMERGENCY 12353 STEVEN RADER 7 7 PHYSICIAN DEPARTMEN S, PLLC T VISIT HIGH/URGE NT SEVERITY [facility] - 7 7 [facility] OUTPATIEN INC T EMERGENCY 99184 [facility] 7 7 [facility] DEPARTMEN INC T VISIT LOW/MODER SEVERITY OFFICE 15754 [facility] OUTPATIEN 7 7 PHYSICIAN T VISIT S GROUP 25 MINUTES [facility] - 7 7 [facility] OUTPATIEN INC T OFFICE 12858 [facility] OUTPATIEN 7 7 PHYSICIAN T NEW 30 S GROUP MINUTES OFFICE 54649 FAM[facility] CROWDY OUTPATIEN 6 6 CARE CRI T VISIT ASSOCIATE 15 S MINUTES OFFICE 40183 [facility] CROWDY OUTPATIEN 6 6 CARE CRI T VISIT ASSOCIATE 15 S MINUTES OFFICE 46158 FAM[facility]OWDY OUTPATIEN 6 6 CARE CRI T VISIT ASSOCIATE 15 S MINUTES [facility] - 6 6 [facility] OUTPATIEN INC T EMERGENCY 36412 [facility] 6 6 [facility] DEPARTMEN INC T VISIT LOW/MODER SEVERITY EMERGENCY 19985 [facility] PHYSICIAN MODERATE S SEVERITY [facility] - 5 5 EAST OUTPATIEN T PERIODIC 83558 FAMILY DYLLAN PREVENTIV 5 5 CARE LAUREN E MED EST ASSOCIATE PATIENT S 18-39 YRS OFFICE 03254 FAMILY DYLLAN OUTPATIEN 5 5 CARE LAUREN T VISIT ASSOCIATE 15 S MINUTES EMERGENCY 80296 [facility] 4 4 N DEPARTMEN COMMUNITY [facility] SE[facility]ITY [facility] - 4 4 N OUTPATIEN COMMUNITY T HOSPITA EMERGENCY 34160 [facility] [address] [facility] T VISIT MODERATE SEVERITY [facility] - 3 3 [facility] OUTPATIEN [facility] T OFFICE 89336 DYLLAN Lennon OUTPATIEN 3 3 G G T VISIT 15 MINUTES [facility] - 3 3 HOSPITALS OUTPATIEN FOR T CHILD OFFICE 85818 [facility] 3 3 [facility] T VISIT 5 FOR MINUTES CHILD OFFICE 70083 DYLLAN Lennon OUTPATIEN 3 3 G G T VISIT 15 MINUTES [facility] - 3 3 [facility] OUTPATIEN [facility] T OFFICE 01512 DYLLAN Lennon OUTPATIEN 3 3 G G T VISIT 15 MINUTES OFFICE 64292 [facility] 3 3 HOSPITALS T VISIT FOR 10 CHILD MINUTES [facility] 3 [facility]PITALS OUTPATIEN FOR T CHILD [facility] 3 3 [facility]PITALS OUTPATIEN FOR T CHILD OFFICE 10917 DYLLAN Lennon OUTPATIEN 3 3 G G T VISIT 15 MINUTES OFFICE [address] [facility] 3 3 Jun T VISIT 15 MINUTES OFFICE 01816 [facility] 3 3 HOSPITALS T VISIT FOR 10 CHILD MINUTES [facility] - 3 3 HOSPITALS OUTPATIEN FOR T CHILD OFFICE 96577 [facility] 2 2 HOSPITALS T VISIT 5 FOR MINUTES CHILD [facility] - 2 2 HOSPITALS OUTPATIEN FOR T CHILD OFFICE [address] [facility] 2 2 Jun T VISIT 15 MINUTES OFFICE 34387 DYLLAN J DYLLAN J OUTPATIEN 2 2 G G T VISIT 15 MINUT[facility] OFFICE 62439 [facility] T [facility]ISIT 5 FOR MINUTES CHILD [facility] OUTPATIEN FOR T CHILD OFFICE 22011 [facility] 2 [facility] T [facility]ISIT 5 FOR MINUTES CHILD [facility] OUTPATIEN FOR T CHILD OFFICE 66673 [facility] 2 2 HOSPITALS T VISIT 5 FOR MINUTES CHILD [facility] - 2 2 HOSPITALS OUTPATIEN FOR T CHILD OFFICE 65096 [facility] 2 2 HOSPITALS T VISIT 5 FOR MINUTES CHILD [facility] - 2 2 HOSPITALS OUTPATIEN FOR T CHILD OFFICE 16285 [facility] T VISIT 5 FOR MINUTES CHILD [facility] 2 2 HOSPITALS OUTPATIEN FOR T [facility]ILD OFFICE 56490 [facility] 2 2 HOSPITALS T VISIT 5 FOR MINUTES CHILD [facility] 2 2 [facility]PITALS OUTPATIEN FOR T CHILD [facility] - 2 2 HOSPITALS OUTPATIEN FOR T [facility]ILD OFFICE 27839 [facility] 2 2 HOSPITALS T [facility]ISIT 5 FOR MINUTES CHILD [facility] 2 2 [facility]OSPITALS OUTPATIEN FOR T CHILD OFFICE 74177 [facility] 2 2 HOSPITALS T VISIT FOR 10 CHILD MINUTES OFFICE 46667 [facility] 2 2 HOSPITALS T VISIT 5 FOR MINUTES CHILD [facility] - 2 2 H[facility]PITALS OUTPATIEN FOR T CHILD HOSPITAL [facility] - 2 2 [facility]PITALS OUTPATIEN FOR T CHILD [facility] 2 2 HOSPITALS INPATIENT FOR CHILD HOSPITAL [facility] - 2 2 HOSPITALS OUTPATIEN FOR T CHILD OFFICE 57323 DYLLAN Lennon OUTPATIEN 2 2 T VISIT 15 MINUTES OFFICE 48184 [facility] 2 2 [facility] MEGAN T VISIT 5 FOR MINUTES CHILD HOSPITAL [facility] - 2 2 HOSPITALS OUTPATIEN FOR T CHILD [facility] 2 2 [facility] OUTPATIEN INC T EMERGENCY 98910 [facility] 2 2 [facility] DEPARTMEN INC T VISIT LOW/MODER SEVERITY EMERGENCY 72939 [facility] 2 2 III [facility] DEPARTMEN T VISIT MODERATE SEVERITY [facility] 2 HOSPITALS OUTPATIEN FOR T CHILD OFFICE 14436 [facility] 2 2 [facility] T VISIT 5 FOR MINUTES CHILD OFFICE 80680 DYLLAN Lennon OUTPATIEN 2 2 G G T VISIT 15 MINUTES HOSPITAL [facility] 2 2 [facility] INPATIENT FOR CHILD HOSPITAL [facility] 2 2 HOSPITALS OUTPATIEN FOR T CHILD [facility] - 1 1 HOSPITALS OUTPATIEN FOR T CHILD OFFICE 03992 [facility] 1 1 HOSPITALS T VISIT FOR 10 CHILD MINUTES [facility] 1 1 HOSPITALS OUTPATIEN FOR T CHILD OFFICE 40779 [facility] 1 1 MEDICAL KARIS[place] T VISIT SERV 10 FOUNDATIO MINUTES OFFICE 39476 [facility] 1 1 HOSPITALS T VISIT FOR 15 CHILD MINUTES [facility] - 1 1 [facility] T OFFICE 32118 [place] [facility] 1 1 MEDICAL SHE TRISTAN SERV NEW/ESTAB FOUNDATIO PATIENT 40 MIN OFFICE 06346 [facility] 1 1 PHYSICIAN ZAFAR Santana GROUP NEW/ESTAB PATIENT 80 MIN [facility] - [facility] 1 [facility] T OFFICE 55075 [facility] D[facility] CARE T VISIT ASSOCIATE 15 S MINUTES EMERGENCY 83254 JUANY LOPEZ 1 1 EMERGENCY [facility] DEPARTMEN SERVICES T VISIT HIGH/URGE NT SEVERITY [facility] - 1 1 [facility] T EMERGENCY 00072 [facility] 1 1 [facility] DEPARTMEN INC T VISIT MODERATE SEVERITY OFFICE 82247 [facility] CARE T VISIT ASSOCIATE 15 S MINUTES
--- OUTSIDE RECORDS SUMMARY | 2017-03-28 15:30 | External Medical Summary Rpt | CCD ---
Author Author , BENJIE Organization BENJIE Address Unknown Phone [email or web address] Name Relationship Address Phone KEEGAN, Next Of Kin Unknown Unavailable ANTON Immunization Name Date Rout CVX Reac Dose Comm Prov Is Faci e tion ent ider Refu lity Give sed n HPV, 08-2 137 999 Hist OK No OK UF 3-20 oric 11 al Info rmat ion - Sour ce Unsp ecif ied HPV, 04-1 137 999 Hist OK No OK UF 9-20 oric 11 al Info rmat ion - Sour ce Unsp ecif ied MCV4 06-1 147 999 Hist OK No OK UF 3-20 oric 07 al Info rmat ion - Sour ce Unsp ecif ied Tdap 10-1 115 999 Hist H149 No H149 , 7-20 oric Adso 06 al rbed Info rmat ion - Sour ce Unsp ecif ied DTaP 04-1 107 999 Hist H149 No H149 , UF 3-20 oric 00 al Info rmat ion - Sour ce Unsp ecif ied MMR 04-1 3 999 Hist H149 No H149 3-20 oric 00 al Info rmat ion - Sour ce Unsp ecif ied Antonio 04-1 10 999 Hist OK No OK o-IP 3-20 oric V 00 al Info rmat ion - Sour ce Unsp ecif ied Vari 09-2 21 999 Hist H149 No H149 cell 2-19 oric a 97 al Info rmat ion - Sour ce Unsp ecif ied DTP- 07-3 22 999 Hist H149 No H149 Hib 0-19 oric 96 al Info rmat ion - Sour ce Unsp ecif ied MMR 07-3 3 999 Hist H149 No H149 0-19 oric 96 al Info rmat ion - Sour ce Unsp ecif ied Hep 04-2 8 999 Hist OK No OK B, 3-19 oric ped/ 96 al adol Info rmat ion - Sour ce Unsp ecif ied DTaP 11-2 107 999 Hist OK No OK , UF 1-19 oric 95 al Info rmat ion - Sour ce Unsp ecif ied Antonio 11-2 10 999 Hist OK No OK o-IP 1-19 oric V 95 al Info rmat ion - Sour ce Unsp ecif ied Hib, 11-2 17 999 Hist OK No OK UF 1-19 oric 95 al Info rmat ion - Sour ce Unsp ecif ied Hib, 09-2 17 999 Hist OK No OK UF 8- oric 95 al Info rmat ion - Sour ce Unsp ecif ied DTaP 09-2 107 999 Hist OK No OK , UF 8-19 oric 95 al Info rmat ion - Sour ce Unsp ecif ied Antonio 09-2 10 999 Hist OK No OK o-IP 8-19 oric V 95 al Info rmat ion - Sour ce Unsp ecif ied Hep 08-2 8 999 Hist OK No OK B, 2-19 oric ped/ 95 al adol Info rmat ion - Sour ce Unsp ecif ied Antonio 07-2 10 999 Hist OK No OK o-IP 8-19 oric V 95 al Info rmat ion - Sour ce Unsp ecif ied DTaP 07-2 107 999 Hist OK No OK , UF 8-19 oric 95 al Info rmat ion - Sour ce Unsp ecif ied Hib, 07-2 17 999 Hist OK No OK UF 8- oric 95 al Info rmat ion - Sour ce Unsp ecif ied Hep 04-2 8 999 Hist OK No OK B, 0-19 oric ped/ 95 al adol Info rmat ion - Sour ce Unsp ecif ied
--- OUTSIDE RECORDS SUMMARY | 2017-03-28 15:30 | External Medical Summary Rpt | CCD ---
Author Author , BENJIE Organization BENJIE Address Unknown Phone [email or web address] Care Team Providers Care Oil Driller Name Role Phone [facility] Unavailable [...] PRINCE GELY, Unavailable Unavailable PRINCE GELY [facility] Unavailable Unavailable [facility] Unavailable [facility], [facility] JOHN, JOHN Unavailable Unavailable JOHN ABHISHEK, JOHN Unavailable Unavailable [facility] JOHN ABH[facility]K, JOHN Unavailable Unavailable [facility] Unavailable Unavailable HOSPITA, [facility] Unavailable Unavailable INC, [facility] ARROYO KATE, ARROYO KATE Unavailable Unavailable ARROYO KATE, ARROYO KATE Unavailable Unavailable [facility], Unavailable Unavailable [facility] RADER, RADER Unavailable Unavailable RN HEMATOLOGY DAVE, RN HEMATOLOGY DAVE Unavailable Unavailable [facility], [facility] Un[facility], [facility] Unavailable Unavailable [facility], [facility] Unavailable Unavailable [facility] Unavailable Unavailable [facility], [facility] Unavailable Unavailable [facility] Unavailable Unavailable [facility] Unavailable Unavailable SERVICES, [facility] Un[facility] MERCHANT KET, Unavailable Unavailable MERCHANT KET MOGHADAMIAN, Unavailable Unavailable MOGHADAMIAN POWELL, Unavailable Unavailable POWELL POWELL CHR, Unavailable Unavailable POWELL CHR TALA II, TALA II Unavailable Unavailable PETTEY, PETTEY Unavailable Unavailable PETTEY JAM, PETTEY Unavailable Unavailable JAM [facility] Unavailable Unavailable [id number] # [id number], [facility] [id number] # [id number] [facility] Unavailable Unavailable FOR CHILD, [facility] Unavailable Unavailable EQUIPME, [facility] Unavailable Unavailable [facility], [facility] Unavailable Unavailable EMERGENCY PHYS, [facility] JF, JF Unavailable Unavailable [facility] Unavailable Unavailable [facility] MCNEIL RAY, MCNEIL Unavailable Unavailable [facility] Unavailable Unavailable HOSPITALS, [facility], Unavailable Unavailable [facility] WALKER KARISSA, WALKER Unavailable Unavailable KARISSA HANCOCK, WALKER Unavailable Unavailable KARISSA [facility], Unavailable Unavailable [facility], Unavailable Unavailable [facility] WEHRMAN III AINSLEY, Unavailable Unavailable WEHRMAN III AINSLEY WEHRMAN III AINSLEY, Unavailable Unavailable WEHRMAN III AINSLEY ADELINA MEGAN, ADELINA Unavailable Unavailable MEGAN Purpose Continuity of Care Document - 2010 through 2016 Problems Code Diagnosis DOS Provider Status [id number] JUVENILE 02-13-2017 [facility] UNS LEG [id number] UNS FX 02-13-2017 [place] [facility] SHAFT [facility] SERV [facility] [facility] SUBSQT CLOS FX RTN HEAL [id number] DISPLACED 02-13-2017 [facility] UNS [facility] SUBSQT CLOS RTN [id number] DISPLACED 01-09-2017 [facility] P[facility] FX LT HEALTHCARE [facility] INIT HOSPITALS ENC CLOSED FX [id number] DISPLACED 01-09-2017 [place] [facility] PILON FX LT SERV [facility] SUBSQT CLOS RTN HEAL [id number] NONDISPLACE 11-17-2016 [facility] UNS [facility] INIT ENC CLOS FX E6601 MORBID 11-15-2016 [place] [facility] SEVERE SERV OBESITY DUE FOUNDATION TO EXCESS CALORIES Z6843 BODY MASS 11-15-2016 [place] [facility]ICAL INDEX BMI SERV 50-59.9 FOUNDATION ADULT Z8739 PERSONAL HX 11-15-2016 [place] [facility] OTH DZ SERV MUSCULOSKEL FOUNDATION SYS&CONNECT V TISS M70031 OTHER 11-15-2016 [place] [facility] SPECIFIED SERV POSTPROCEDU [facility] [id number] UNS 11-14-2016 [place] [facility] FRACTURE SERV LOWER LT FOUNDATION TIBIA INITIAL ENC CLOS FX [id number] NONDISPLACE 11-09-2016 [facility] Garcia GOPI FX MEM HOS[facility] LT [facility] INC INIT ENC CLOS FX [id number] DISPL 11-07-2016 [facility] SHAFT LT IMAGING ASS T[facility] INIT ENC CLOS FX [id number] OTH FX 11-07-2016 [facility] UPPER & MEDICAL LOWER LT IMAGING ASS FIB SUBSQT CLOS RTN HEAL F42593 PAIN IN 11-02-2016 [facility] ANKLE [facility] M7989 OTHER 11-02-2016 [facility] SPECIFIED MEDICAL SOFT TISSUE IMAGING ASS DISORDERS R609 EDEMA 11-02-2016 [facility] UNSPECIFIED AMBULANCE SERVICE [id number] OPEN BITE 11-02-2016 [facility] LEFT ANKLE [facility] INITIAL INC ENCOUNTER Z23 ENCOUNTER 11-02-2016 [facility] FOR [facility] IMMUNIZATIO INC N E559 VITAMIN D 08-04-2016 [facility] UNSPECIFIED GROUP E663 OVERWEIGHT 08-04-2016 [facility] M9251 JUVENILE 07-19-2016 [facility] & FIBULA RT LEG M9252 JUVENILE 07-19-2016 [facility] & FIBULA LEFT LEG M929 JUVENILE 07-19-2016 [facility] IMAGING ASS UNSPECIFIED N938 OTHER SPEC 07-19-2016 [facility] ABNORMAL [facility] UTERINE & GROUP VAGINAL BLEEDING Z1159 ENCOUNTER 05-19-2016 [facility] FOR [facility] SCREENING HOLDINGS FOR OTHER VIRAL DISEASES R768 OTH SPEC 05-18-2016 [facility] ABNORMAL ASSOCIATES IMMUNOLOGIC AL FIND IN SERUM R90789 REGULAR 03-20-2016 ARROYO KATE ASTIGMATISM BILATERAL A749 CHLAMYDIAL 01-19-2016 MEDICAL INFECTION DIAGNOSTIC UNSPECIFIED LAB LLC N3001 ACUTE 01-19-2016 [facility] CYSTITIS ASSOCIATES WITH HEMATURIA B379 CANDIDIASIS 12-17-2015 [facility] UNSPECIFIED R300 DYSURIA 12-17-2015 [facility] R875 ABN 12-17-2015 LABORATORY MICROBIOLOG TONY OF ICAL FIND CHELLY H IN SPEC FE GENIT ORGN O10664 PERSONAL 12-17-2015 [facility] HISTORY OF ASSOCIATES OTHER SPECIFIED CONDITIONS R040 EPISTAXIS 08-31-2015 [facility] Z5329 PROC & [place] 08-30-2015 [facility] NOT CARRIED [facility] OUT INC PATIENTS OTH REASON E669 OBESITY 06-08-2015 ST [facility] UNSPECIFIED EAST [id number] CONTUSION 06-08-2015 [facility] OF LEFT EAST KNEE INITIAL ENCOUNTER E5675CC CONTUSION 06-08-2015 [facility] PRIMARY OF LEFT CARE LOWER LEG PHYSICIANS INITIAL ENCOUNTER C7523LF UNS INJURY 06-08-2015 [facility] [place] LT LOWER RADIOLOGY LEG INITIAL ENCOUNTER X1537HI OTHER FALL 06-08-2015 [facility] PRIMARY ON SAME CARE LEVEL PHYSICIANS INITIAL ENCOUNTER 54834 UNSPECIFIED 12-23-2014 [facility] VAGINITIS ASSOCIATES AND VULVOVAGINI TIS V259 UNSPECIFIED 12-23-2014 [facility] ASSOCIATES CONTRACEPTI VE MANAGEMENT V762 SCREENING 12-23-2014 MEDICAL FOR DIAGNOSTIC MALIGNANT LAB LLC NEOPLASM OF THE CERVIX 5990 URINARY 12-16-2014 [facility] TRACT ASSOCIATES INFECTION SITE NOT SPECIFIED 0340 STREPTOCOCC 04-15-2014 [facility] SORE N EMERGENCY THROAT PHYS 7804 DIZZINESS 04-05-2014 [facility] [place] AND RADIOLOGY GIDDINESS 17224 UNSPECIFIED 12-02-2012 [facility] SITE OF ANKLE SPRAIN AND STRAIN 11385 PAIN IN 10-22-2012 PRINCE JOINT, GELY ANKLE AND FOOT 7295 PAIN IN 10-22-2012 [facility] TISSUES OF INC LIMB 35717 DISORDERS 10-22-2012 PRINCE OF SOFT GELY TISSUE UNSPECIFIED 26175 UNSPECIFIED 10-22-2012 PRINCE GELY OSTEOPOROSI S 7324 JUVENILE 10-15-2012 [facility] OSIS LOWER FOR CHILD EXTREM EXCLD FOOT V5489 OTHER 10-15-2012 [facility] ORTHOPEDIC [facility] AFTERCARE FOR CHILD 33310 OSTEOGENESI 09-20-2012 [facility] HOME IMPERFECTA MEDICAL EQUIPME 7823 EDEMA 09-19-2012 [facility] INC V571 OTHER 08-29-2012 [facility] PHYSICAL [facility] THERAPY FOR CHILD 15933 GENU VALGUM 07-19-2012 WALK[facility] KARISSA 12989 UNEQUAL LEG 07-19-2012 [facility] KARISSA LENGTH 2689 UNSPECIFIED 07-08-2012 DYLLAN Garcia VITAMIN D DEFICIENCY 46208 UNSPECIFIED 06-27-2012 [facility] KARISSA CONGENITAL ANOMALY OF LOWER LIMB 77752 OTHER 05-30-2012 [facility] ACQUIRED [facility] DEFORMITY FOR CHILD OF OTHER PARTS OF LIMB 7820 DISTURBANCE 05-30-2012 [facility] SKIN [facility] SENSATION FOR CHILD V5409 OTH 05-30-2012 [facility] INVOLVING FOR CHILD INTERNAL FIXATION DEVICE V5878 AFTERCARE 05-30-2012 [facility] SURGERY FOR CHILD MUSCULOSKEL SYSTEM NEC 7812 ABNORMALITY 04-18-2012 [facility] GAIT HOSPITALS FOR CHILD 26342 CONGEN 04-02-2012 [facility] KARISSA DISLOCATION 1 HIP W/SUBLUXATI ON OT HIP V7263 PRE-PROCEDU 02-16-2012 [facility] LABORATORY FOR CHILD EXAMINATION V6709 FOLLOW-UP 10-10-2011 [facility] HOSPITALS FOLLOWING FOR CHILD OTHER SURGERY 28271 PAIN IN 09-11-2011 WEHRMAN III JOINT, AINSLEY LOWER LEG 31827 OBESITY, 08-21-2011 [facility] UNSPECIFIED [facility] FOR CHILD 63154 VOMITING 08-21-2011 [facility] HOSPITALS FOR CHILD V5849 OTHER 08-21-2011 [place] [facility] SPECIFIED SERV [facility]CARE FOUNDAT[facility] FOLLOWING SURGERY V7283 OTHER 08-20-2011 [facility] PRE-OPERATI FOR CHILD VE EXAMINATION V0489 NEED PROPH 01-31-2011 [facility] VACCINATION ASSOCIATES &[place]Z 26572 ABNORM 12-01-2010 [facility] RATE/RHYTHM FOR CHILD BEFORE ONSET LABOR 00167 OTHER 11-15-2010 [facility]ONE AND CARTIL[facility] OTHER V1551 PERSONAL 11-15-2010 [facility] TRAUMATIC FRACTURE 7366 OTHER 10-05-2010 [facility] DEFORMITIES IMAGING ASS OF KNEE 65457 CONGEN 10-05-2010 [facility] DEFIC GROUP FEMORAL COMPLETE/PA RTIAL 7202 SACROILIITI 10-03-2010 [facility] S NOT ASSOCIATES ELSEWHERE CLASSIFIED 70733 PAIN IN 10-02-2010 [facility] EMERGENCY PELVIC SERVICES REGION AND THIGH 7242 LUMBAGO 10-02-2010 [facility] 7245 UNSPECIFIED 10-02-2010 [facility] V058 NEED PROPH 2010 [facility] VACC&INOCUL [facility]OCIATES AT [facility] OT SPEC DISEASE Medications Na ND Rx [...] 1 34 PH CE AR TA MA VT CY NO PH #3 EN 93 8 [...] 1 60 30 RI 87 CO Ac TX 09 -1 -2 .0 TE 98 OP [...] Procedure DOS Code Location Performer Comment RADIOLOGI 32620 [place] JF C 7 MEDICAL EXAMINATI SERV ON T[facility]IA FOUNDATIO & FIBULA N 2 VIEWS RADEX 94425 [place] JF ANKLE 7 MEDICAL COMPLETE SERV MINIMUM 3 FOUNDATIO VIEWS N RADEX 87985 [place] MONTGOMER ANKLE 7 MEDICAL Y COMPLETE SERV MINIMUM 3 FOUNDATIO VIEWS N RADIOLOGI 86543 [place] MONTGOMER C 7 MEDICAL Y EXAMINATI SERV ON TIBIA FOUNDATIO & FIBULA N 2 VIEWS COMMODE E0168 [facility]ECARE CHAIR 7 MEDICAL [address] [facility] WIDE&/HEV Y DUTY STATION/M OBIL ANES OPEN 23274 [place] TALA II PROC 7 MEDICAL BONES SERV LOWER FOUNDATIO LEG/ANKLE N /FOOT NOS RADEX 88353 [place] DON ANKLE 7 MEDICAL COMPLETE SERV MINIMUM 3 FOUNDATIO VIEWS N RADIOLOGI 60481 [place] DON C 7 MEDICAL EXAMINATI SERV ON TIBIA FOUNDATIO & FIBULA N 2 VIEWS OPEN 02514 [place] MOGHADAMI TREATMENT 7 MEDICAL AN FRACTURE SERV DISTAL FOUNDATIO TIBIA N ONLY RADIOLOGI 78399 [place] DON C 7 MEDICAL EXAMINATI SERV ON TIBIA FOUNDATIO & FIBULA N 2 VIEWS RADEX 57377 MAINOR JF ANKLE 7 MEDICAL COMPLETE SERV MINIMUM 3 FOUNDATIO VIEWS N FINAL G9638 MANPREET SANDERS REPORTS 7 MEDICAL W/O DOC IMAGING 1/MORE ASS DOSE REDUCTION TECH CT LOWER 73229 [facility] SALES EXTREMITY 7 MEM HOSP [facility] W/O INC INC CONTRAST MATERIAL RADEX 79759 MANPREET SANDERS ANKLE 7 MEDICAL COMPLETE IMAGING MINIMUM 3 ASS VIEWS RADEX 55016 MANPREET SANDERS ANKLE 7 MEDICAL COMPLETE IMAGING MINIMUM 3 ASS VIEWS AMBULANCE A0429 [facility] SERVICE 7 AMBULANCE AMBULANCE BLS SERVICE SERVICE EMERGENCY TRANSPORT GROUND A0425 [facility] MILEAGE 7 AMBULANCE AMBULANCE PER SERVICE SERVICE STATUTE MILE COMPREHEN 08336 [facility] SALES SIVE 7 [facility] [address] [facility] SALES FREE 7 [facility] [place] [address] [facility] SALES THYROID 7 [facility] STIMULATI INC INC NG HORMONE TSH SEDIMENTA 88884 [facility] SALES TION RATE 7 [facility] RBC INC INC NON-AUTOM ATED COLLECTIO 59330 [facility] SALES N VENOUS 7 [facility] BLOOD INC INC VENIPUNCT URE RADEX 49849 [facility] SALES SPINE 7 [facility] LUMBOSACR INC INC AL MINIMUM 4 VIEWS RADEX 92462 MANPREET SANDERS HIPS 7 MEDICAL BILATERAL IMAGING WITH ASS PELVIS 3-4 VIEWS URNLS DIP 75078 [facility] SALES 7 MEM HOSP [facility] STICK/TAB INC INC LET REAGENT AUTO MICROSCOP Y HEMOGLOBI 54821 [facility] SALES N 7 MEM HOSP [facility]OS[facility] GLYCOSYLA INC INC SINTIA A1C BLOOD 60808 [facility] SALES COUNT 7 MEM HOS[facility]OS[facility] COMPLETE INC INC AUTO&AUTO DIFRNTL WBC RHEUMATOI 04976 [facility] SALES D FACTOR 7 MEM HOSP [facility] HOS[facility] QUANTITAT INC INC RENETTA RADEX HIP 37438 [facility] SALES 7 MEM HOSP [facility] HOS[facility] UNILATERA INC INC L WITH PELVIS 2-3 VIEWS RADIOLOGI 71070 [facility] SALES C 7 MEM HOSP [facility]OS[facility] EXAMINATI INC INC ON TIBIA & FIBULA 2 VIEWS CULTURE 45252 [facility] SALES BACTERIAL 7 MEM HOSP [facility]OS[facility] INC INC QUANTTATI VE COLONY COUNT URINE URINE 43184 [facility] 7 PHYSICIAN TEST S GROUP [place] [address] [facility] SALES BLOOD/URI 7 MEM HOSP [facility] C ACID INC INC ANTINUCLE 99333 [facility] SALES AR 7 MEM HOSP [facility]OS[facility] ANTIBODIE INC INC S BARRY IADNA 53779 LAB [facility] LAB TONY HEPATITIS 6 CHELLY CHELLY B VIRUS HOLDINGS HOLDINGS QUANTIFIC ATION COLLECTIO 80204 FAMILY MIJARES N VENOUS 6 CARE BLOOD ASSOCIATE VENIPUNCT S URE COLLECTIO 70234 FAMILY HAWK N VENOUS 6 CARE BLOOD ASSOCIATE VENIPUNCT S URE ACUTE 64878 LAB [facility] LAB T[facility] HEPATITIS 6 CHELLY CHELLY PANEL HOLDINGS HOLDINGS OPHTH 65017 ARROYO KATE [facility] MEDICAL 6 XM&EVAL COMPRE NEW PT 1/> VST CULTURE 62961 COMBINED COMBINED BACTERIAL 6 PHYSICIAN PHYSICIAN S LA S LA QUANTTATI VE COLONY COUNT URINE IADNA 04642 MEDICAL MEDICAL CHLAMYDIA 6 DIAGNOSTI DIAGNOSTI C LAB LLC C LAB LLC TRACHOMAT IS AMPLIFIED PROBE TQ IADNA 37605 LABORATOR LABORATOR HUMAN 6 Y TONY OF Y TONY OF [place] CHELLY CHELLY VIRUS H H HIGH-RISK TYPES IADNA 15257 LABORATOR LABORATOR CHLAMYDIA 6 Y TONY OF Y TONY OF CHELLY CHELLY TRACHOMAT H H IS AMPLIFIED PROBE TQ CULTURE 80803 COMBINED COMBINED BCT 6 PHYSICIAN PHYSICIAN ISOL&PRSM S LA S LA PTV ID ISOLATE EA URINE CULTURE 26322 COMBINED COMBINED BACTERIAL 6 PHYSICIAN PHYSICIAN S LA S LA QUANTTATI VE COLONY COUNT URINE IADNA 75726 LABORATOR LABORATOR TRICHOMON 6 Y TONY OF Y TONY OF CHELLY CHELLY VAGINALIS H H AMPLIFIED PROBE TECH CYTP C/V 60777 LABORATOR LABORATOR AUTO THIN 6 Y TONY OF Y TONY OF LYR CHELLY CHELLY PREPJ SCR H H MNL RESCR PHYS IADNA 58825 LABORATOR LABORATOR HERPES 6 Y TONY OF Y TONY OF SOMPLX CHELLY CHELLY VIRUS H H AMPLIFIED PROBE TQ IADNA 69716 LABORATOR LABORATOR NEISSERIA 6 Y TONY OF Y TONY OF CHELLY CHELLY GONORRHOE H H AE AMPLIFIED PROBE TQ SUSCEPTIB 16051 COMBINED COMBINED ILITY 6 PHYSICIAN PHYSICIAN STUDY S LA S LA ANTIMICRO BIAL DISK METHOD RADIOLOGI 60305 [facility] [place] JAM C EXAM 5 RADIOLOGY KNEE COMPLETE 4/MORE VIEWS IADNA NOS 42383 MEDICAL MEDICAL 5 DIAGNOSTI DIAGNOSTI AMPLIFIED C LAB LLC C LAB LLC PROBE TQ EACH ORGANISM IADNA 47051 MEDICAL MEDICAL NEISSERIA 5 DIAGNOSTI DIAGNOSTI C LAB LLC C LAB LLC GONORRHOE AE AMPLIFIED PROBE TQ IADNA 60565 MEDICAL MEDICAL GARDNEREL 5 DIAGNOSTI DIAGNOSTI LA C LAB LLC C LAB LLC VAGINALIS AMPLIFIED PROBE TQ IADNA 01351 MEDICAL MEDICAL TRICHOMON 5 DIAGNOSTI DIAGNOSTI C LAB LLC C LAB LLC VAGINALIS AMPLIFIED PROBE TECH IADNA 80296 MEDICAL MEDICAL CHLAMYDIA 5 DIAGNOSTI DIAGNOSTI C LAB LLC C LAB LLC TRACHOMAT IS AMPLIFIED PROBE TQ IADNA 10910 MEDICAL MEDICAL HUMAN 5 DIAGNOSTI DIAGNOSTI [place]OMA C LAB LLC C LAB LLC VIRUS HIGH-RISK TYPES CULTURE 93644 COMBINED COMBINED BCT 5 PHYSICIAN PHYSICIAN ISOL&PRSM S LA S LA PTV ID ISOLATE EA URINE CULTURE 61238 COMBINED COMBINED BACTERIAL 5 PHYSICIAN PHYSICIAN S LA S LA QUANTTATI VE COLONY COUNT URINE SUSCEPTIB 17947 COMBINED COMBINED ILITY 5 PHYSICIAN PHYSICIAN STUDY S LA S LA ANTIMICRO BIAL DISK METHOD THERAPEUT 55428 [facility] IC 4 N N PROPHYLAC COMMUNITY COMMUNITY TIC/DX HOSPITA HOSPITA INJECTION SUBQ/[place] [address] [facility] [place] TARUN HEAD/BRAI 4 RADIOLOGY RAY N W/O CONTRAST MATERIAL CRTCHS E0114 [facility] UNDARM 3 OTH THAN WOOD PAIR PAD TIP&HNDGR IP RADEX 63262 PRINCE PRINCE FOOT 3 GELY GELY COMPLETE MINIMUM 3 VIEWS RADEX 37427 PRINCE PRINCE ANKLE 3 GELY GELY COMPLETE MINIMUM 3 VIEWS EXTRA K0007 NIK MILTONRELL HEAVY-DUT 3 HOME HOME Y MEDICAL MEDICAL WHEELCHAI EQUIPME EQUIPME R ELEVATING K0195 NIK NIK LEGREST 3 HOME HOME PAIR MEDICAL MEDICAL EQUIPME EQUIPME DUP-SCAN 01431 [facility] SALES XTR VEINS 3 MEM HOS[facility] INC INC UNILATERA L/LIMITED STUDY PHYSICAL [address] EVALUATIO FOR FOR N CHILD CHILD RADIOLOGI [address] EXAMINATI FOR FOR ON TIBIA CHILD [...] HOME PAIR MEDICAL MEDICAL EQUIPME EQUIPME RADIOLOGI [address] EXAMINATI FOR FOR ON TIBIA CHILD CHILD & FIBULA 2 VIEWS URINE 78493 [facility] [address] [place] [address] TEST FOR FOR VISUAL CHILD CHILD COLOR CMPRSN METHS APPLICATI 20427 [facility] ON LONG [address] [place] [address] LEG CAST FOR FOR WALKER/AM CHILD CHILD BULATORY TYPE PHYSICAL [address] EVALUATIO FOR FOR N CHILD CHILD REMOVAL [address] FIXATION FOR FOR SYSTEM CHILD CHILD UNDER ANES ANES CAST 65657 RN HEMATOLOGY DAVE RN HEMATOLOGY DAVE 3 APPLICATI ON REMOVAL/R EPAIR KNEE JOINT RADIOLOGI 70837 [facility] EXAMINATI FOR FOR ON TIBIA CHILD CHILD & FIBULA 2 VIEWS RADIOLOGI 30865 [facility] HOSPITALS EXAMINATI FOR FOR ON TIBIA CHILD CHILD & FIBULA 2 VIEWS 25 34085 COMBINED COMBINED [facility] 2 PHYSICIAN PHYSICIAN INCLUDES S LA S LA FRACTIONS IF PERFORMED BLOOD 09730 DYLLAN Lennon COUNT 2 G G COMPLETE AUTO&AUTO DIFRNTL WBC RADIOLOGI 97813 [facility]IT[facility] EXAMINATI FOR FOR ON TIBIA CHILD CHILD & FIBULA 2 VIEWS BONE 02333 [facility] STUDIES FOR FOR CHILD CHILD THERAPEUT 77077 [facility] IC PX 1/> 2 [facility]OS[facility]ITALS AREAS FOR FOR EACH 15 CHILD CHILD MIN EXERCISES THERAPEUT 31766 [facility] PX 1/> 2 [facility] AREAS FOR FOR EACH 15 CHILD CHILD MIN EXERCISES RADIOLOGI 53471 [facility] EXAMINATI FOR FOR ON TIBIA CHILD CHILD & FIBULA 2 VIEWS RADIOLOGI 04140 [facility] 2 [facility] EXAMINATI FOR FOR ON TIBIA CHILD CHILD & FIBULA 2 VIEWS THERAPEUT 91578 [facility] IC PX 1/> 2 [facility] AREAS FOR FOR EACH 15 CHILD CHILD MIN EXERCISES BONE 25574 [facility] STUDIES FOR FOR CHILD CHILD RADIOLOGI 70429 [facility] 2 [facility] EXAMINATI FOR FOR ON TIBIA CHILD CHILD & FIBULA 2 VIEWS RADIOLOGI 40634 [facility] 2 [facility] EXAMINATI FOR FOR ON TIBIA CHILD CHILD & FIBULA 2 VIEWS RADIOLOGI 21710 [facility] 2 [facility] EXAMINATI FOR FOR ON TIBIA CHILD CHILD & FIBULA 2 VIEWS BONE 06723 [facility] STUDIES FOR FOR CHILD CHILD RADIOLOGI 31046 [facility] 2 [facility] EXAMINATI FOR FOR ON TIBIA CHILD CHILD & FIBULA 2 VIEWS THERAPEUT 55622 [facility] IC PX 1/> 2 HOSPITALS HOSPITALS AREAS FOR FOR EACH 15 CHILD CHILD MIN EXERCISES THERAPEUT 09176 [facility] DIRECT PT FOR FOR CONTACT CHILD CHILD EACH 15 MIN THERAPEUT 00870 [facility] DIRECT PT FOR FOR CONTACT CHILD CHILD EACH 15 MIN THERAPEUT 95392 [facility] IC PX 1/> 2 HOSPITALS HOSPITALS AREAS FOR FOR EACH 15 CHILD CHILD MIN EXERCISES THERAPEUT 88842 [facility] IC PX 1/> 2 [facility]OSPITALS HOSPITALS AREAS FOR FOR EACH 15 CHILD CHILD MIN EXERCISES THERAPEUT 70592 [facility] DIRECT PT FOR FOR CONTACT CHILD CHILD EACH 15 MIN THERAPEUT 60204 [facility] DIRECT PT FOR FOR CONTACT CHILD CHILD EACH 15 MIN THERAPEUT 72697 [facility] IC PX 1/> [facility] AREAS FOR FOR EACH 15 CHILD CHILD MIN EXERCISES THERAPEUT 05474 [facility] DIRECT PT FOR FOR CONTACT CHILD CHILD EACH 15 MIN THERAPEUT 13038 [facility] IC PX 1/> [facility] AREAS FOR FOR EACH 15 CHILD CHILD MIN EXERCISES THERAPEUT 91180 [facility] IC PX 1/> [facility] AREAS FOR FOR EACH 15 CHILD CHILD MIN EXERCISES THERAPEUT 55039 [facility] 2 [facility] DIRECT PT FOR FOR CONTACT CHILD CHILD EACH 15 MIN THERAPEUT 75762 [facility] 2 [facility] DIRECT PT FOR FOR CONTACT CHILD CHILD EACH 15 MIN TH[facility]APEUT 80691 [facility] AREAS FOR FOR EACH 15 CHILD CHILD MIN EXERCISES THERAPEUT 85879 [facility] IC PX 1/> [facility] AREAS FOR FOR EACH 15 CHILD CHILD MIN EXERCISES THERAPEUT 26587 [facility] DIRECT PT FOR FOR CONTACT CHILD CHILD EACH 15 MIN PHYSICAL [id number] HOSPITALS EVALUATIO FOR FOR N CHILD CHILD APPLICATI 14104 WALK[facility] WALKER ON 2 Jun MULTIPLAN E EXTERNAL FIXATION SYSTEM OSTEOPLAS 93597 [facility] WALKER TY TIBIA 2 Jun & FIBULA LENGTHENI NG/SHORTE ZIYAD DCMPRN 05513 [facility] FASCT LEG 2 Jun ANT&/LAT& PST CMPRT ANES OPEN 43441 [place] [facility] 2 MEDICAL Y CHR OSTEOTOMY SERV /OSTEOPLA FOUNDATIO STY TIBIA&/FI BULA APPLICATI 7817 [facility] 2 [facility] EXTERNAL FOR FOR FIXATOR CHILD CHILD DEVC TIBIA&FIB MENDEL FASCIOTOM [address] [facility] 2 [facility] FOR FOR CHILD CHILD APPLICATI 8472 [facility] 2 [facility] EXTERNAL FOR FOR FIXATOR CHILD CHILD DEVICE RING SYSTEM OTHER 7847 [facility] REPAIR OR 2 [facility] PLASTIC FOR FOR OPERATION CHILD CHILD S TIBIA&FIB MENDEL OTHER 7737 [facility] 2 [facility] OF [place] FOR FOR AND CHILD CHILD FIBULA BLOOD 69057 DYLLAN [place] COUNT 2 COMPLETE AUTO&AUTO DIFRNTL WBC COMPREHEN 10915 COMBINED COMBINED SIVE 2 PHYSICIAN PHYSICIAN METABOLIC S LA S LA PANEL 25 27354 COMBINED COMBINED HYDROXY 2 PHYSICIAN PHYSICIAN INCLUDES [place] [address] COMBINED COMBINED THYROID 2 PHYSICIAN PHYSICIAN STIMULATI S LA S LA NG HORMONE TSH PHYSICAL [id number] EVALUATIO FOR FOR N CHILD CHILD RADIOLOGI [address] EXAMINATI FOR FOR ON KNEE CHILD CHILD 1/2 VIEWS RADIOLOGI 69853 [facility] SALES C 2 [facility] EXAMINATI INC INC ON KNEE 1/2 VIEWS WEDGE 7725 [facility] OSTEOTOMY 2 [facility] FOR FOR CHILD CHILD INTERNAL 7855 [facility] FIXATION [address] [place] [address] FEM FOR FOR WITHOUT CHILD CHILD FRACTURE REDUCTION OSTEOTOMY 31576 WALKER WALKER FEMUR 2 Jun SHAFT/SUP RACONDYLA R W/FIXATIO N ANESTHESI 53610 MAINOR BENJAMIN A OPEN 2 MEDICAL Y CHR PROCEDURE SERV S UPPER FOUNDATIO 2/3 [place]EMUR [place] NJX 98126 MAINOR BENJAMIN INFUS/SERG 2 MEDICAL Y CHR US SERV DX/SBST FOUNDATIO EDRL/SUBA VALARIE LUM/SACRA L THROMBOPL 90762 [facility] ASTIN [address] [place] [address] TIME FOR FOR PARTIAL CHILD CHILD PLASMA/WH OLE BLOOD BLOOD 03658 [facility] TYPING [address] [place] [address] SEROLOGIC FOR FOR RH (D) CHILD CHILD BASIC [address] PANEL FOR FOR CALCIUM CHILD CHILD TOTAL BLOOD 64448 [facility] COUNT [address] [place] [address] COMPLETE FOR FOR AUTO&AUTO CHILD CHILD DIFRNTL WBC BONE [address] STUDIES FOR FOR CHILD CHILD PROTHROMB 05727 [facility] IN TIME [address] [place] [address] HOSPITALS FOR FOR CHILD CHILD ANTIBODY 93980 [facility] SCREEN [address] [place] [address] RBC EACH FOR FOR SERUM CHILD CHILD TECHNIQUE BLOOD [address] SEROLOGIC FOR FOR ABO CHILD CHILD THERAPEUT 10168 FAMILY DYLLAN J IC 1 CARE PROPHYLAC ASSOCIATE TIC/DX S INJECTION SUBQ/IM 4VHPV 76856 FAMILY DYLLAN Lennon VACCINE 3 1 CARE DOSE ASSOCIATE SCHEDULE S FOR IM USE RADIOLOGI [address] EXAMINATI FOR FOR ON TIBIA CHILD CHILD & FIBULA 2 VIEWS BONE 05282 [facility] 1 [facility] STUDIES FOR FOR CHILD CHILD JOINT 23353 [facility] UNIVERS SURVEY 1 Y Y [facility] VIEW 2 OR MORE JOINTS RADIOLOGI 14495 [facility] 1 MEDICAL GELY EXAMINATI IMAGING ON KNEE ASS 1/2 VIEWS BASIC 31638 [facility] SALES METABOLIC 1 [facility] PANEL INC INC CALCIUM TOTAL URINE 40906 [facility] SALES 1 [facility] TEST INC INC VISUAL COLOR CMPRSN METHS RADIOLOGI 34358 MANPREET MORRISON C 1 MEDICAL GELY EXAMINATI IMAGING ON PELVIS ASS 1/2 VIEWS RADEX 29182 MANPREET MORRISON SPINE 1 MEDICAL GELY LUMBOSACR IMAGING AL ASS MINIMUM 4 VIEWS BLOOD 12760 [facility] SALES COUNT 1 [facility] COMPLETE INC INC AUTO&AUTO DIFRNTL WBC URNLS DIP 33737 M[facility] SALES 1 [facility] STICK/TAB INC INC LET REAGENT AUTO MICROSCOP Y RADEX HIP 36341 MANPREET MORRISON 1 MEDICAL GELY [place] IMAGING L ASS COMPLETE MINIMUM 2 VIEWS SEDIMENTA 30217 MÓ[facility]ICA SALES TION RATE 1 [facility] HOSP RBC INC INC NON-AUTOM ATED THERAPEUT 76532 FAMILY DYLLAN Lennon IC 1 CARE PROPHYLAC ASSOCIATE TIC/DX S INJECTION SUBQ/IM 4VHPV 34643 FAMILY DYLLAN Lennon VACCINE 3 1 CARE DOSE ASSOCIATE SCHEDULE S FOR IM USE Encounters Encounter Start End Date Code Location Performer Type Date [facility] - 7 7 [facility] OUTPATIEN E T HOSPITALS OFFICE 96435 OUTPATIEN 7 7 [facility] T VISIT 5 E MINUTES HOSPITALS OFFICE 65627 OUTPATIEN 7 7 [facility]IS[facility] [address] [facility] - 7 7 [facility] OUTPATIEN E T HOSPITALS OFFICE 05865 OUTPATIEN 7 7 [facility] T VISIT [address] [facility] - 7 [facility] [address] [facility] - 7 7 [facility] OUTPATIEN INC T OFFICE 74197 [facility] OUTPATIEN 7 7 PHYSICIAN T NEW 30 S GROUP MINUTES [facility]OSP[facility] - 7 7 [facility] OUTPATIEN INC T EMERGENCY 44521 STEVEN RADER 7 7 PHYSICIAN DEPARTMEN S, PLLC T VISIT HIGH/URGE NT SEVERITY [facility]OSPITAL [facility] - 7 7 [facility] OUTPATIEN INC T EMERGENCY 49273 [facility] 7 7 [facility] DEPARTMEN INC T VISIT LOW/MODER SEVERITY OFFICE 39594 [facility] OUTPATIEN 7 7 PHYSICIAN T VISIT S GROUP 25 MINUTES HOSPITAL [facility] - 7 7 [facility] OUTPATIEN INC T OFFICE 03197 [facility] OUTPATIEN 7 7 PHYSICIAN T NEW 30 S GROUP MINUTES OFFICE 64581 FAMILY CROWDY OUTPATIEN 6 6 CARE CRI T VISIT ASSOCIATE 15 S MINUTES OFFICE 79790 [facility] CROWDY OUTPATIEN 6 6 CARE CRI T VISIT ASSOCIATE 15 S MINUTES OFFICE 63964 [facility] CROWDY OUTPATIEN 6 6 CARE CRI T VISIT ASSOCIATE 15 S MINUTES [facility]OSP[facility] - 6 6 [facility] OUTPATIEN INC T EMERGENCY 58607 [facility] 6 6 [facility] DEPARTMEN INC T VISIT LOW/MODER SEVERITY EMERGENCY 30726 [facility] PHYSICIAN MODERATE S SEVERITY HOSPITAL [facility] - 5 5 EAST OUTPATIEN T PERIODIC 55723 FAMILY DYLLAN PREVENTIV 5 5 CARE LAUREN E MED EST ASSOCIATE PATIENT S 18-39 YRS OFFICE 76250 FAMILY DYLLAN OUTPATIEN 5 5 CARE LAUREN T VISIT ASSOCIATE 15 S MINUTES EMERGENCY 25010 [facility] 4 4 N DEPARTMEN COMMUNITY T VISIT [facility]FORM[facility]LY [facility] MODERATE SEVERITY HOSPITAL [facility] - 4 4 N OUTPATIEN COMMUNITY T HOSPITA EMERGENCY 96287 JOHN LOPEZ 3 3 [facility] T VISIT MODERATE SEVERITY [facility] [place] - 3 3 [facility] OUTPATIEN [facility] T OFFICE 03765 DYLLAN Lennon OUTPATIEN 3 3 G G T VISIT 15 MINUTES HOSPITAL [facility] - 3 3 HOSPITALS OUTPATIEN FOR T CHILD OFFICE 72430 [facility] 3 3 [facility] T VISIT 5 FOR MINUTES CHILD OFFICE 05210 DYLLAN Lennon OUTPATIEN 3 3 G G T VISIT 15 MINUTES HOSPITAL [facility] - 3 3 [facility] OUTPATIEN [facility] T OFFICE 11226 DYLLAN Lennon OUTPATIEN 3 3 G G T VISIT 15 MINUTES OFFICE 33757 [facility] 3 3 HOSPITALS T VISIT FOR 10 CHILD MINUTES [facility]OS[facility] - 3 3 HOSPITALS OUTPATIEN FOR T CHILD [facility] - 3 3 HOSPITALS OUTPATIEN FOR T CHILD OFFICE 31698 DYLLAN Lennon OUTPATIEN 3 3 G G T VISIT 15 MINUTES OFFICE [address] [facility] 3 3 Jun T VISIT 15 MINUTES OFFICE 28143 [facility] 3 3 HOSPITALS T VISIT FOR 10 CHILD MINUTES [facility] - 3 3 HOSPITALS OUTPATIEN FOR T CHILD OFFICE 14822 [facility] 2 2 HOSPITALS T VISIT 5 FOR MINUTES CHILD [facility]OS[facility] - 2 2 HOSPITALS OUTPATIEN FOR T CHILD OFFICE [address] [facility] 2 2 Jun T VISIT 15 MINUTES OFFICE 07144 DYLLAN J DYLLAN J OUTPATIEN 2 2 G G T VISIT 15 MINUTES OFFICE 23531 [facility] T [facility]ISIT 5 FOR MINUTES [facility]ILD [facility] 2 2 HOSPITALS OUTPATIEN FOR T CHILD OFFICE 51450 [facility] 2 2 HOSPITALS T [facility]ISIT 5 FOR MINUTES CHILD [facility] 2 2 HOSPITALS OUTPATIEN FOR T CHILD OFFICE 92315 [facility] 2 2 HOS[facility]ITALS T VISIT 5 FOR MINUTES CHILD [facility] - 2 2 HOSPITALS OUTPATIEN FOR T CHILD OFFICE 64721 [facility] 2 2 HOSPITALS T VISIT 5 FOR MINUTES CHILD [facility]OS[facility] - 2 2 HOSPITALS OUTPATIEN FOR T CHILD OFFICE 75017 [facility] T [facility]ISIT 5 FOR MINUTES CHILD [facility] - 2 2 HOSPITALS OUTPATIEN FOR T CHILD OFFICE 84006 [facility] 2 2 HOSPITALS T VISIT 5 FOR MINUTES CHILD [facility]OS[facility] - 2 2 HOSPITALS OUTPATIEN FOR T CHILD [facility] - 2 2 HOSPITALS OUTPATIEN FOR T CHILD OFFICE 01796 [facility] 2 2 HOSPITALS T VISIT 5 FOR MINUTES CHILD [facility]OS[facility] - 2 2 HOSPITALS OUTPATIEN FOR T CHILD OFFICE 93937 [facility] 2 2 HOSPITALS T VISIT FOR 10 CHILD MINUTES OFFICE 90716 [facility] 2 2 HOSPITALS T VISIT 5 FOR MINUTES CHILD [facility]OS[facility] - 2 2 HOSPITALS OUTPATIEN FOR T CHILD [facility] 2 [facility]ITALS OUTPATIEN FOR T CHILD [facility] 2 2 HOSPITALS INPATIENT FOR CHILD [facility]OS[facility] 2 2 HOSPITALS OUTPATIEN FOR T CHILD OFFICE 93710 DYLLAN Lennon OUTPATIEN 2 2 T VISIT 15 MINUTES OFFICE 97139 [facility] 2 2 [facility] MEGAN T VISIT 5 FOR MINUTES CHILD [facility]OS[facility] - 2 2 HOSPITALS OUTPATIEN FOR T CHILD [facility] - 2 2 [facility] OUTPATIEN INC T EMERGENCY 39880 [facility] 2 2 [facility] DEPARTMEN INC T VISIT LOW/MODER SEVERITY EMERGENCY 96998 [facility] 2 2 III AINSLEY III [facility] DEPARTMEN T VISIT MODERATE SEVERITY HOSPITAL [facility] - 2 2 HOSPITALS OUTPATIEN FOR T CHILD OFFICE 55819 [facility] 2 2 [facility] T VISIT 5 FOR MINUTES CHILD OFFICE 86105 DYLLAN Lennon OUTPATIEN 2 2 G G T VISIT 15 MINUTES HOSPITAL [facility] 2 2 [facility] INPATIENT FOR CHILD [facility]OSPITAL [facility] 2 2 HOSPITALS OUTPATIEN FOR T CHILD [facility]OS[facility] - 1 1 HOSPITALS OUTPATIEN FOR T CHILD OFFICE 61375 [facility] 1 1 HOSPITALS T VISIT FOR 10 CHILD MINUTES [facility]OS[facility] - 1 1 HOSPITALS OUTPATIEN FOR T CHILD OFFICE 49222 [facility] 1 1 MEDICAL KARISSA T VISIT SERV 10 FOUNDATIO MINUTES OFFICE 94363 [facility] 1 1 HOSPITALS T VISIT FOR 15 CHILD MINUTES [facility]OS[facility] - 1 1 [facility] T OFFICE 19729 [place] [facility] 1 1 MEDICAL SHE TRISTAN SERV NEW/ESTAB FOUNDATIO PATIENT 40 MIN OFFICE 89385 [facility] 1 1 PHYSICIAN ZAFAR Santana GROUP NEW/ESTAB PATIENT 80 MIN [facility] - 1 1 [facility] 03644 [facility] D[facility] 1 1 CARE T VISIT ASSOCIATE 15 S MINUTES EMERGENCY 83538 JUAYN LOPEZ 1 1 EMERGENCY [facility] DEPART[facility] SERVICES T VISIT HIGH/URGE NT SEVERITY [facility] M[facility]NICA - 1 1 [facility] T EMERGENC[facility] 00193 [facility] 1 1 [facility] DEPARTMEN INC T VISIT MODERATE SEVERITY OFFICE 95550 [facility] CARE T VISIT ASSOCIATE 15 S MINUTES
--- OUTSIDE RECORDS SUMMARY | 2017-03-28 15:30 | External Medical Summary Rpt | CCD ---
Author Author , BENJIE Organization BENJIE Address Unknown Phone [email or web address] Name Relationship Address Phone KEEGAN, Next Of Kin Unknown Unavailable ANTON Immunization Name Date Rout CVX Reac Dose Comm Prov Is Faci e tion ent ider Refu lity Give sed n HPV, 08-2 137 999 Hist [place] No HI UF 3-20 oric 11 al Info rmat ion - Sour ce Unsp ecif ied HPV, 04-1 137 999 Hist [place] No HI UF 9-20 oric 11 al Info rmat ion - Sour ce Unsp ecif ied MCV4 06-1 147 999 Hist [place] No HI UF 3-20 oric 07 al Info rmat [...] ion - Sour ce Unsp ecif ied Antoino 04-1 10 999 Hist [place] No HI o-IP 3-20 oric V 00 al Info [...] ecif ied Hep 04-2 8 999 Hist [place] No HI B, 3-19 oric ped/ 96 al adol Info rmat ion - Sour ce Unsp ecif ied DTaP 11-2 107 999 Hist [place] No [place] , UF 1-19 oric 95 al Info rmat ion - Sour ce Unsp ecif ied Antonio 11-2 10 999 Hist [place] No [place] o-IP 1-19 oric V 95 al Info rmat ion - Sour ce Unsp ecif ied Hib, 11-2 17 999 Hist [place] No HI UF 1-19 oric 95 al Info rmat ion - Sour ce Unsp ecif ied Hib, 09-2 17 999 Hist [place] No HI UF 8- oric 95 al Info rmat ion - Sour ce Unsp ecif ied DTaP 09-2 107 999 Hist [place] No [place] , UF 8-19 oric 95 al Info rmat ion - Sour ce Unsp ecif ied Antonio 09-2 10 999 Hist [place] No HI o-IP 8-19 oric V 95 al Info rmat ion - Sour ce Unsp ecif ied Hep 08-2 8 999 Hist [place] No HI B, 2-19 oric ped/ 95 al adol Info rmat ion - Sour ce Unsp ecif ied Antonio 07-2 10 999 Hist [place] No HI o-IP 8-19 oric V 95 al Info rmat ion - Sour ce Unsp ecif ied DTaP 07-2 107 999 Hist [place] No [place] , UF 8-19 oric 95 al Info rmat ion - Sour ce Unsp ecif ied Hib, 07-2 17 999 Hist [place] No HI UF 8- oric 95 al Info rmat ion - Sour ce Unsp ecif ied Hep 04-2 8 999 Hist [place] No HI B, 0-19 oric ped/ 95 al adol Info rmat ion - Sour ce Unsp ecif ied
--- OUTSIDE RECORDS SUMMARY | 2017-03-28 15:31 | External Medical Summary Rpt ---
Author Author BENJIE Pantoja, BENJIE Pantoja Organization [employer] Address Unknown Phone Unavailable
[2017-03-28] MEDS ORDERED: PYRIDIUM100 M2 PO (15:50)
[2017-03-28] MEDS ORDERED: MACROBID100 M3 PO (15:50)
--- NOTE | 2017-03-28 15:50 | Urgent Treatment Center Report ---
History of Present Issue Date/Time Seen by Provider 03/28/17 1538 Visit Reason Pt arrived:Walked Presenting Problem:PT C/O OF LOWER BACK PAIN AND DISCOMFORT URINATING SINCE Sunday03/24/17. Location if Accident: Onset of symptoms date/time:03/24/17 or onset unknown for: Have you (or family members/close friends) recently traveled outside the [place]? N If Yes, where/when: Have you had exposure to infectious disease within the past month? TB? Other? Specify: Patient states that she is currently on her period State that she use to have freqent UTIs and feels like she may have one now. States that she has been having pain and burning with urination since Sunday States that she feels like hse has to go all the time and feels like she has to go right then. State that it has continued to get worse so she needed to come in and get her urine checked ALLERGIES Coded Allergies: No Known Allergies (03/26/17) Home Medications Active Scripts HYDROCODONE/ACETAMINOPHEN (Lortab 5-325 MG Tablet) 1 TAB PO Q6HP PRN fracture pain #20 TAB Prov: 11/02/16 Device (Walker, Folding) 1 UNIT XX UD #1 DEV Prov: 11/02/16 IBUPROFEN MICRONIZED (IBUPROFEN 600MG) 600 MG PO Q6HP PRN BREAKTHROUGH MOD TO SEV PAIN #10 TABLET Prov: 03/28/14 AMOXICILLIN/POTASSIUM CLAV (Amox Tr-K Clv 875-125 MG Tab) 1 TAB PO BID #20 TAB Prov: 03/28/14 History Medical History General CAD? No Angina: No ID: No Hypertension? No Hyperlipidemia? No CHF? No DVT? No PE? No COPD? No Asthma? No Anemia? No GERD? No Gastric ulcers? No GI Bleed? No Hernia? No Thyroid Problems? No Hypothyroidism? No CVA? No Seizures? No Diabetes? No Renal Insuffiency? No UTI? Yes Stones? No BPH? No GB Disease: No Nephritic Syndrome? No Asplenia? No Hepatitis? No Sickle Cell Disease? No Arthritis? No Migraines? No Cataracts? No Glaucoma? No MRSA? No HIV? No TB? No Anxiety? No Depression? No Cancer? No More? 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 Physical Exam Vital Signs Vital Signs Date Time Temp Pulse Resp B/P Pulse O2 O2 Flow FiO2 Ox Delivery Rate 03/28 1532 98.2 106 20 141/88 96 General Appearance normal appearance, WD/WN, no apparent distress Respiratory Status Yes: trachea midline, chest symmetrical, non tender chest. No: respiratory distress. Cardiovascular normal exam, regular rate/rhythm, no peripheral edema Neurologic alert, normal exam, oriented x 3 Medical Decision Making LABS/Meds/Orders Pt receiving controlled substance in ED? No Results/Orders Laboratory Tests 03/28/17 1529: Urine Color YELLOW, Urine Appearance Clear, Urine pH 7.0, Ur Specific [place] 1.025, Urine Protein TRACE H, Urine Ketones TRACE H, Urine Blood 3+ H, Urine Nitrate NEGATIVE, Urine Bilirubin NEGATIVE, Urine Urobilinogen 0.2, Ur Leukocyte Esterase 1+ H, Urine Glucose NEGATIVE Orders Procedure Date/time Status [facility] URINE DIPSTICK 03/28 1529 Complete Departure Departure Time of Disposition 1541 Disposition DC Home or Self Care(routine) Clinical Impression Primary Impression: UTI (urinary tract infection) Qualifiers: Urinary tract infection type: site unspecified Hematuria presence: with hematuria Qualified Code: N39.0 - Urinary tract infection, site not specified Condition STABLE Referrals Srinivasan LANDA,Simba Campos (Family): 3 Days-Call Office if no improvement of symptoms Patient Instructions DI for Urinary Tract Infection (UTI), Urinary Tract Infection Additional Instructions *Increase fluids. Water not Soda or Tea *Start antibiotic immediately and be sure to take as ordered for the FULL length of time although you should start to see improvement over the next 48 hours *Pyridium as needed Remember this medication will turn your urine [place]. This is normal but it will stain what ever it gets on *You should not use Pyridium for more than 48 hours. If so , follow up with your primary physician to review urine culture and ensure that antibiotic is adequate for infection *Be SURE to follow up anytime for new or worsening symptoms. AND in 48 hours for urine culture results AND in 10-14 days to repeat UA to ensure infection is resolved and blood no longer present *Be sure to let your PCP know that we sent urine cultures from the [facility] so they can follow up to ensure that you area the on the correct antibiotic Discharge Counseling Counseled pt/family regarding diagnosis, test results, medications/RX, home care, follow up needs Prescriptions Current Visit Scripts NITROFURANTOIN MONOHYD/M-CRYST (Macrobid 100 MG Capsule) 100 MG PO BID #14 CAP Phenazopyridine HCl (Pyridium) 100 MG PO TID #6 TAB at 1550
--- NOTE | 2017-03-28 15:50 | Urgent Treatment Center Report ---
History of Present Issue Date/Time Seen by Provider 03/28/17 1538 Visit Reason Pt arrived:Walked Presenting Problem:PT C/O OF LOWER BACK PAIN AND DISCOMFORT URINATING SINCE Sunday03/24/17. Location if Accident: Onset of symptoms date/time:03/24/17 or onset unknown for: Have you (or family members/close friends) recently traveled outside the [place]? N If Yes, where/when: Have you had exposure to infectious disease within the past month? TB? Other? Specify: Patient states that she is currently on her period State that she use to have freqent UTIs and feels like she may have one now. States that she has been having pain and burning with urination since Sunday States that she feels like hse has to go all the time and feels like she has to go right then. State that it has continued to get worse so she needed to come in and get her urine checked ALLERGIES Coded Allergies: No Known Allergies (03/26/17) Home Medications Active Scripts HYDROCODONE/ACETAMINOPHEN (Lortab 5-325 MG Tablet) 1 TAB PO Q6HP PRN fracture pain #20 TAB Prov: 11/02/16 Device (Walker, Folding) 1 UNIT XX UD #1 DEV Prov: 11/02/16 IBUPROFEN MICRONIZED (IBUPROFEN 600MG) 600 MG PO Q6HP PRN BREAKTHROUGH MOD TO SEV PAIN #10 TABLET Prov: 03/28/14 AMOXICILLIN/POTASSIUM CLAV (Amox Tr-K Clv 875-125 MG Tab) 1 TAB PO BID #20 TAB Prov: 03/28/14 History Medical History General CAD? No Angina: No CT: No Hypertension? No Hyperlipidemia? No CHF? No DVT? No PE? No COPD? No Asthma? No Anemia? No GERD? No Gastric ulcers? No GI Bleed? No Hernia? No Thyroid Problems? No Hypothyroidism? No CVA? No Seizures? No Diabetes? No Renal Insuffiency? No UTI? Yes Stones? No BPH? No GB Disease: No Nephritic Syndrome? No Asplenia? No Hepatitis? No Sickle Cell Disease? No Arthritis? No Migraines? No Cataracts? No Glaucoma? No MRSA? No HIV? No TB? No Anxiety? No Depression? No Cancer? No More? 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 Physical Exam Vital Signs Vital Signs Date Time Temp Pulse Resp B/P Pulse O2 O2 Flow FiO2 Ox Delivery Rate 03/28 1532 98.2 106 20 141/88 96 General Appearance normal appearance, WD/WN, no apparent distress Respiratory Status Yes: trachea midline, chest symmetrical, non tender chest. No: respiratory distress. Cardiovascular normal exam, regular rate/rhythm, no peripheral edema Neurologic alert, normal exam, oriented x 3 Medical Decision Making LABS/Meds/Orders Pt receiving controlled substance in ED? No Results/Orders Laboratory Tests 03/28/17 1529: Urine Color YELLOW, Urine Appearance Clear, Urine pH 7.0, Ur Specific [place] 1.025, Urine Protein TRACE H, Urine Ketones TRACE H, Urine Blood 3+ H, Urine Nitrate NEGATIVE, Urine Bilirubin NEGATIVE, Urine Urobilinogen 0.2, Ur Leukocyte Esterase 1+ H, Urine Glucose NEGATIVE Orders Procedure Date/time Status [facility] URINE DIPSTICK 03/28 1529 Complete Departure Departure Time of Disposition 1541 Disposition DC Home or Self Care(routine) Clinical Impression Primary Impression: UTI (urinary tract infection) Qualifiers: Urinary tract infection type: site unspecified Hematuria presence: with hematuria Qualified Code: N39.0 - Urinary tract infection, site not specified Condition STABLE Referrals Srinivasan LANDA,Simba Campos (Family): 3 Days-Call Office if no improvement of symptoms Patient Instructions DI for Urinary Tract Infection (UTI), Urinary Tract Infection Additional Instructions *Increase fluids. Water not Soda or Tea *Start antibiotic immediately and be sure to take as ordered for the FULL length of time although you should start to see improvement over the next 48 hours *Pyridium as needed Remember this medication will turn your urine [place]. This is normal but it will stain what ever it gets on *You should not use Pyridium for more than 48 hours. If so , follow up with your primary physician to review urine culture and ensure that antibiotic is adequate for infection *Be SURE to follow up anytime for new or worsening symptoms. AND in 48 hours for urine culture results AND in 10-14 days to repeat UA to ensure infection is resolved and blood no longer present *Be sure to let your PCP know that we sent urine cultures from the [facility] so they can follow up to ensure that you area the on the correct antibiotic Discharge Counseling Counseled pt/family regarding diagnosis, test results, medications/RX, home care, follow up needs Prescriptions Current Visit Scripts NITROFURANTOIN MONOHYD/M-CRYST (Macrobid 100 MG Capsule) 100 MG PO BID #14 CAP Phenazopyridine HCl (Pyridium) 100 MG PO TID #6 TAB at 1550
[2017-03-28 15:55] VITALS: BP 141/88
== END 2017-03-28 16:19 | disposition home or self-care (01) ==
LOC: UTC 15:16
PROVIDERS: Nurse Practitioner
DX: N39.0 Urinary tract infection, site not specified (principal); R31.9 Hematuria, unspecified